=== PATIENT | female | born 1975 | race Caucasian/White ===

== ENCOUNTER 2017-12-01 06:58 | Day surgery (SDC) | payer OTHER ==
[~2017-12-01 06:58] MED LIST: Bisacodyl 5 MG Tab PO PRN; Magnesium Hydroxide 400 MG/5 ML Susp 30 ML Cup PO PRN; Naloxone 0.4 MG/ML SDV IVPUSH PRN; Ondansetron 4 MG/2 ML SDV IVPUSH PRN; Sennosides 8.6 MG Tab PO PRN; diphenhydrAMINE 50 MG/ML SDV IVPUSH PRN
[2017-12-01] MEDS ORDERED: Sodium Chloride 0.9% 10 ML Syringe FLUSH PRN (07:00)
[2017-12-01] MEDS ORDERED: Lactated Ringers 1,000 ML IV SCH (07:00)
[2017-12-01] MEDS ORDERED: Lidocaine 1%/Sod Bicarbonate in NS 8.4% 1 ML Syringe IDERM PRN (07:00)
[2017-12-01] MEDS ORDERED: Morphine PF 1 MG/ML Amp ONE (07:38)
[2017-12-01] MEDS ORDERED: Lactated Ringers 1,000 ML ONE ×2 (08:08→15:02)
[2017-12-01] MEDS ORDERED: Propofol 200 MG/20 ML SDV ONE ×3 (08:08→16:04)
[2017-12-01] MEDS ORDERED: ceFAZolin 1 GM Vial ONE (08:08)
[2017-12-01] MEDS ORDERED: Ketorolac 30 MG/ML SDV ONE (08:08)
[2017-12-01] MEDS ORDERED: Midazolam 1 MG/ML 2 ML SDV ONE (08:09)
[2017-12-01] MEDS ORDERED: fentaNYL 100 MCG/2 ML SDV ONE (08:09)
--- NOTE | 2017-12-01 13:15 | PCM.PREANE ---
Preanesthetic Assessment - Anesthesia/Transfusion/Family Hx Anesthesia History: Prior Anesthesia Reaction (nausea) Type of Anesthesia Reaction: Excessive Nausea/Vomiting Other Type of Anesthesia Reaction Comment: nausea/emesis Family History of Anesthesia Reaction: No Transfusion History: No Prior Transfusion(s) Intubation History: Unknown - Review of Systems General: No Symptoms Pulmonary: No Symptoms (History of asthma/Current every day smoker:1/4 pack/day times 2 years) Cardiovascular: No Symptoms, Palpitations (with anxiety attacks) Gastrointestinal: No Symptoms Neurological: No Symptoms (history of motion sickness) Other: Reports: Easy Bruising, Depression, Anxiety - Physical Assessment NPO Status Date: 11/30/17 NPO Status Time: 23:00 Pulse: 64 O2 Sat by Pulse Oximetry: 96 Respiratory Rate: 16 Blood Pressure: 127/80 Temperature: 36.7 C Height: 1.7 m Weight: 93 kg ASA Class: 2 Mental Status: Alert & Oriented x3 Airway Class: Mallampati = 2 Dentition: Reports: Normal Dentition, Caries Thyro-Mental Finger Breadths: 3 Mouth Opening Finger Breadths: 3 ROM/Head Extension: Full Lungs: Clear to Auscultation, Normal Respiratory Effort Cardiovascular: Regular Rate, Regular Rhythm, No Murmurs - Lab Values: MRSA negative hgb= 15.7 hct= 44.8 platelets= 227,000 All labs reviewed and noted and within acceptable ranges to proceed with scheduled procedure. - Allergies Allergies/Adverse Reactions: Allergies Allergy/AdvReac Type Severity Reaction Status Date / Time tree nut Allergy Severe Anaphylactic Verified 11/28/17 13:23 Shock levofloxacin [From Levaquin] Allergy Rash Verified 11/28/17 13:23 metronidazole [From Flagyl] Allergy Rash Verified 11/28/17 13:23 Penicillins Allergy Hives Verified 11/28/17 13:23 meperidine HCl [From Demerol] AdvReac Nausea Verified 11/28/17 13:23 - Anesthesia Plan Pre-Op Medication Ordered: None - Acknowledgements Anesthesia Type Planned: Spinal (Right femoral nerve block within adductor canal under US guidance for post operative pain control requested by Dr. 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 (See Below) Other OB/BYN History: breast reduction Musculoskeletal History: Reports: None Neurological History: Reports: None Psychiatric History: Reports: Depression Other Psychiatric History: Effexor 37.5 mg Endocrine/Metabolic History: Reports: None Hematologic History: Reports: Iron Deficiency Other Hematologic History: iron deficiency after Immunologic History: Reports: None Oncologic (Cancer) History: Reports: None Dermatologic History: Reports: Other (See Below) Other Dermatologic History: reports that she had a ingrown hair that got infected and she had to have surgery to remove and clean it out. She states that she was in the hospital for 6 days as she had a staph and strep infection - Infectious Disease History Infectious Disease History: Reports: Chicken Pox - Past Surgical History Head Surgeries/Procedures: Reports: None HEENT Surgical History: Reports: Adenoidectomy, Tonsillectomy Cardiovascular Surgical History: Reports: None Respiratory Surgical History: Reports: None GI Surgical History: Reports: Appendectomy, Cholecystectomy Female Surgical History: Reports: Breast Reduction, Section, D&C, Hysterectomy Male Surgical History: Reports: None Endocrine Surgical History: Reports: None Neurological Surgical History: Reports: None Musculoskeletal Surgical History: Reports: None - SUBSTANCE USE Smoking Status *Q: Current Every Day Smoker Tobacco Use Within Last Twelve Months: Cigarettes Second Hand Smoke Exposure: No Days Per Week of Alcohol Use: 0 Number of Drinks Per Day: 0 Total Drinks Per Week: 0 Recreational Drug Use History: No - HOME MEDS Home Medications: Home Meds Zolpidem [Ambien] 10 mg PO BEDTIME 09/03/14 [History] Venlafaxine [Venlafaxine ER] 75 mg PO DAILY 11/13/15 [History] Albuterol [Proventil] 1 puff INH Q4H PRN 11/26/17 [History] HYDROcodone/Ibuprofen [Vicoprofen] 1 tab PO Q4H PRN 11/26/17 [History] LORazepam [LORazepam] 0.5 mg PO QID PRN 11/26/17 [History] - CURRENT (IN HOUSE) MEDS Current Meds: Current Medications Aspirin (Ecotrin) 325 mg PO BID HERNAN Bisacodyl (Dulcolax) 5 mg PO DAILY PRN PRN Reason: Constipation Morphine Sulfate 8 mg/Epinephrine HCl 0.3 mg/Ketorolac Tromethamine 30 mg/ Sodium Chloride 27.9 ml 0 mg .XX ONETIME ONE Stop: 12/01/17 14:01 Cyclobenzaprine HCl (Flexeril) 10 mg PO TID PRN PRN Reason: Spasms Diphenhydramine HCl (Benadryl) 25 mg IVPUSH Q4H PRN PRN Reason: Nausea Docusate Sodium (Colace) 100 mg PO BID HERNAN Famotidine (Pepcid) 20 mg PO Q12H HERNAN Lactated Ringer's (Ringers, Lactated) 1,000 mls @ 125 mls/hr IV ASDIRECTED HERNAN Stop: 12/01/17 23:00 Clindamycin Phosphate 600 mg/ (Sodium Chloride) 104 mls @ 100 mls/hr IV Q6H HERNAN Stop: 12/02/17 07:01 Clindamycin Phosphate 900 mg/ (Sodium Chloride) 106 mls @ 100 mls/hr IV ONETIME ONE Stop: 12/01/17 15:03 Ketorolac Tromethamine (Toradol) 15 mg IVPUSH Q6H PRN PRN Reason: Pain Lidocaine/Sodium Bicarbonate (Buffered Lidocaine 1% In Ns 8.4%) 0.25 ml IDERM ONETIME PRN PRN Reason: Prior to IV Start Stop: 12/01/17 18:00 Magnesium Hydroxide (Milk Of Magnesia) 30 ml PO BID PRN PRN Reason: Constipation Naloxone HCl (Narcan) 0.1 mg IVPUSH Q5M PRN PRN Reason: Oversedation Ondansetron HCl (Zofran) 4 mg IVPUSH Q6H PRN PRN Reason: Nausea/Vomiting Oxycodone/Acetaminophen (Percocet 325-5 Mg) 1 - 2 tab PO Q4H PRN PRN Reason: Pain Senna (Senna) 8.6 mg PO BID PRN PRN Reason: Constipation Sodium Chloride (Saline Flush) 10 ml FLUSH ASDIRECTED PRN PRN Reason: Keep Vein Open Stop: 12/01/17 18:00 Discontinued Medications Cefazolin Sodium (Ancef) Confirm Administered Dose 2 gm .ROUTE .STK-MED ONE Stop: 12/01/17 08:09 Fentanyl (Sublimaze) Confirm Administered Dose 100 mcg .ROUTE .STK-MED ONE Stop: 12/01/17 08:10 Lidocaine HCl (Xylocaine-Mpf 1%) Confirm Administered Dose 10 mls @ as directed .ROUTE .STK-MED ONE Stop: 12/01/17 08:09 Lactated Ringer's (Ringers, Lactated) Confirm Administered Dose 1,000 mls @ as directed .ROUTE .STK-MED ONE Stop: 12/01/17 08:09 Ketorolac Tromethamine (Toradol) Confirm Administered Dose 30 mg .ROUTE .STK- MED ONE Stop: 12/01/17 08:09 Midazolam HCl (Versed 1 Mg/Ml) Confirm Administered Dose 2 mg .ROUTE .STK-MED ONE Stop: 12/01/17 08:10 Morphine Sulfate (Duramorph Pf) Confirm Administered Dose 1 mg .ROUTE .STK-MED ONE Stop: 12/01/17 07:39 Propofol (Diprivan 20 Ml) Confirm Administered Dose 400 mg .ROUTE .STK-MED ONE Stop: 12/01/17 08:09
[2017-12-01] MEDS ORDERED: Scopolamine 1 MG Transdermal Patch TRDERM ONE (13:16)
[2017-12-01] MEDS ORDERED: Bupivacaine 0.25% 30 ML SDV ONE (13:48)
[2017-12-01] MEDS ORDERED: Clindamycin Phosphate 900 MG/6 ML AdvVial ONE (13:48)
[2017-12-01] MEDS ORDERED: Clindamycin Phosphate 900 MG in Sodium Chloride 0.9% 100 ML IV ONE (14:00)
--- NOTE | 2017-12-01 15:15 | PCM.CONS ---
H&P History of Present Illness - General Date of Service: 12/01/17 Admit Problem/Dx: Admission Diagnosis/Problem Admission Diagnosis/Problem Osteoarthritis of knee Source of Information: Patient, Old Records, Provider, RN Notes Reviewed History Limitations: Reports: Physical Impairment - History of Present Illness Initial Comments - Free Text/Narative: This is a 42-year-old, white female, with past medical history of Asthma, Insomnia and Obesity who underwent right TKA vs PFA post operative day zero. Patient is doing relatively well. Currently, her pain is controlled. She denies any acute issues. Medicine was consulted for postoperative care. - Related Data Allergies/Adverse Reactions: Allergies Allergy/AdvReac Type Severity Reaction Status Date / Time tree nut Allergy Severe Anaphylactic Verified 11/28/17 13:23 Shock levofloxacin [From Levaquin] Allergy Rash Verified 11/28/17 13:23 metronidazole [From Flagyl] Allergy Rash Verified 11/28/17 13:23 Penicillins Allergy Hives Verified 11/28/17 13:23 meperidine HCl [From Demerol] AdvReac Nausea Verified 11/28/17 13:23 Home Medications: Home Meds Zolpidem [Ambien] 10 mg PO BEDTIME 09/03/14 [History] Venlafaxine [Venlafaxine ER] 75 mg PO DAILY 11/13/15 [History] Albuterol [Proventil] 1 puff INH Q4H PRN 11/26/17 [History] HYDROcodone/Ibuprofen [Vicoprofen] 1 tab PO Q4H PRN 11/26/17 [History] LORazepam [LORazepam] 0.5 mg PO QID PRN 11/26/17 [History] Past Medical History Cardiovascular History: Reports: None Respiratory History: Reports: Asthma Gastrointestinal History: Reports: None Genitourinary History: Reports: None [employer]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: , 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 (See Below) Other OB/BYN History: breast reduction Musculoskeletal History: Reports: None Neurological History: Reports: None Psychiatric History: Reports: Depression Other Psychiatric History: Effexor 37.5 mg Endocrine/Metabolic History: Reports: None Hematologic History: Reports: Iron Deficiency Other Hematologic History: iron deficiency after Immunologic History: Reports: None Oncologic (Cancer) History: Reports: None Dermatologic History: Reports: Other (See Below) Other Dermatologic History: reports that she had a ingrown hair that got infected and she had to have surgery to remove and clean it out. She states that she was in the hospital for 6 days as she had a staph and strep infection - Infectious Disease History Infectious Disease History: Reports: Chicken Pox - Past Surgical History Head Surgeries/Procedures: Reports: None HEENT Surgical History: Reports: Adenoidectomy, Tonsillectomy Cardiovascular Surgical History: Reports: None Respiratory Surgical History: Reports: None GI Surgical History: Reports: Appendectomy, Cholecystectomy Female Surgical History: Reports: Breast Reduction, Section, D&C, Hysterectomy Male Surgical History: Reports: None Endocrine Surgical History: Reports: None Neurological Surgical History: Reports: None Musculoskeletal Surgical History: Reports: None Social & Family History - Tobacco Use Smoking Status *Q: Current Every Day Smoker Years of Tobacco use: 3 Packs/Tins Daily: 0.5 Second Hand Smoke Exposure: No - Caffeine Use Caffeine Use: Reports: Coffee - Alcohol Use Days Per Week of Alcohol Use: 0 Number of Drinks Per Day: 0 Total Drinks Per Week: 0 - Recreational Drug Use Recreational Drug Use: No Drug Use in Last 12 Months: No H&P Review of Systems - Review of Systems: Review Of Systems: See Below General: Denies: Fever, Chills, Malaise, Weakness, Fatigue HEENT: Reports: No Symptoms Pulmonary: Denies: Shortness of Breath Cardiovascular: Denies: Chest Pain, Palpitations, Dyspnea on Exertion, Edema Gastrointestinal: Denies: Abdominal Pain, Nausea, Vomiting Genitourinary: Reports: No Symptoms Musculoskeletal: Reports: No Symptoms Skin: Reports: Pruritis. Denies: Cyanosis, Jaundice, Mottled, Diaphoresis, Erythema Psychiatric: Denies: Confusion, Depression, Mood Lability, Anxiety, Hallucinations, Suicidal Ideation, Homicidal Ideation Neurological: Reports: Difficulty Walking, Gait Disturbance. Denies: Confusion , Weakness Hematologic/Lymphatic: Reports: No Symptoms Immunologic: Reports: No Symptoms Exam - Exam Exam: See Below - Vital Signs Vital Signs: Last Vital Signs Temp 36.7 C 12/01/17 13:39 Pulse 64 12/01/17 13:39 Resp 16 12/01/17 13:39 BP 127/80 12/01/17 13:39 Pulse Ox 96 12/01/17 13:39 Weight: 93 kg - Exam General: Alert, Oriented, Cooperative HEENT: Conjunctiva Clear, EACs Clear, EOMI, Hearing Intact, Mucosa Moist & [place] , Nares Patent, Normal Nasal Septum, Posterior Pharynx Clear, Pupils Equal, Pupils Reactive Neck: Supple, Trachea Midline Lungs: Clear to Auscultation, Normal Respiratory Effort Cardiovascular: Regular Rate, Regular Rhythm GI/Abdominal Exam: Normal Bowel Sounds, Soft, Non-Tender, No Organomegaly, No Abnormal Bruit, No Mass (Female) Exam: Other (indwelling curran catheter) Rectal (Female) Exam: Deferred Back Exam: Normal Inspection, Decreased Range of Motion Extremities: Normal Inspection, Normal Range of Motion, Non-Tender, No Pedal Edema, Normal Capillary Refill Peripheral Pulses: 3+: Posterior Tibial (L), Dorsalis Pedis (L) Skin: Warm, Dry, Intact Neuro Extensive - Mental Status: Oriented x3, Normal Cognition, Memory Intact Neuro Extensive - Motor, Sensory, Reflexes: CN II-XII Intact, Abnormal Gait Psychiatric: Alert, Normal Affect, Normal Mood Consult PN Assessment/Plan POD#: 0 Procedures: Procedures AIRWAY INHALATION TREATMENT (04/07/15) BLOOD TYPING SEROLOGIC ABO (04/07/15) BLOOD TYPING SEROLOGIC RH(D) (04/07/15) COMPLETE CBC AUTOMATED (04/07/15) COMPLETE CBC W/AUTO DIFF WBC (04/07/15) CT HEAD/BRAIN W/O DYE (11/13/15) CULTURE AEROBIC IDENTIFY (10/05/14) EMERGENCY DEPT VISIT (11/13/15) EMERGENCY DEPT VISIT (04/21/15) EMERGENCY DEPT VISIT (10/05/14) EVALUATE PT USE OF INHALER (04/07/15) LAPARO-VAG HYST INCL T/O (04/07/15) MEASURE BLOOD OXYGEN LEVEL (04/07/15) METABOLIC PANEL TOTAL CA (04/07/15) MICROBE SUSCEPTIBLE NOHEMY (10/05/14) MRI JNT OF LWR EXTRE W/O DYE (04/18/17) OFFICE/OUTPATIENT VISIT EST (09/08/14) RBC ANTIBODY SCREEN (04/07/15) ROUTINE VENIPUNCTURE (04/07/15) THER/PROPH/DIAG INJ IV PUSH (11/13/15) THER/PROPH/DIAG IV INF INIT (04/07/15) TISSUE EXAM BY PATHOLOGIST (04/07/15) TX/PRO/DX INJ NEW DRUG ADDON (11/13/15) TX/PROPH/DG ADDL SEQ IV INF (04/07/15) URINALYSIS AUTO W/SCOPE (10/05/14) URINE BACTERIA CULTURE (10/05/14) URINE TEST (04/07/15) Problem List Initiated/Reviewed/Updated: Yes Plan: Assessment: Acute: Post-Operative Care State - Stable - Continue to monitor for hemodynamic instability S/p RKA vs PFA - Stable - DVT and Pain Management as per primary team Hx/o Chronic Knee Pain - Pain Management as per primary team Post Operative Itching/Pruritis - PRN Benadryl as orders by primary team Chronic: Asthma Active Smoker - Offered Nicotine patch - Patient refused Obesity with BMI 32.1 Plan: She is clinically stable Routine AM labs Continue home meds PT/OT consult IS q2 awake Thank you for the opportunity to participate in the management of this patient Requesting Provider: Dr. Gallegos Date Consult Requested: 12/01/17 Reason for Consult: Post-Operative Care Patient History Reviewed: Yes Admission H&P Reviewed: Yes Consult Result/Summary:: Medically Stable Notified Requestor: Yes Time Spent (in minutes): 45
[2017-12-01] MEDS ORDERED: Ondansetron 4 MG/2 ML SDV IVPUSH PRN (15:28)
[2017-12-01] MEDS ORDERED: Midazolam 1 MG/ML 2 ML SDV IVPUSH PRN (15:28)
[2017-12-01] MEDS ORDERED: Albuterol 0.083% 2.5 MG/3 ML Neb Soln NEB PRN (15:28)
[2017-12-01] MEDS ORDERED: fentaNYL 100 MCG/2 ML SDV IVPUSH PRN (15:28)
[2017-12-01] MEDS ORDERED: ePHEDrine 50 MG/ML SDV IVPUSH PRN (15:28)
[2017-12-01] MEDS ORDERED: HYDROmorphone 0.5 MG/0.5 ML Syringe IVPUSH PRN (15:28)
[2017-12-01] MEDS ORDERED: Phenylephrine 1 MG in Sodium Chloride 0.9% 10 ML IV SCH (15:30)
[2017-12-01] MEDS ORDERED: Dexamethasone 4 MG/ML 5 ML MDV ONE (15:40)
[2017-12-01] MEDS ORDERED: Iodine/Sodium Iodide 2% Tincture 30 ML Bottle ONE (15:53)
[2017-12-01] MEDS: Vancomycin 1 GM SDV ONE ×2 (16:22→16:28)
[2017-12-01] MEDS: Morphine 8 MG, EPINEPHrine 0.3 MG, Ketorolac 30 MG, Sodium Chloride 0.9% 27.9 ML ONE ×4 (16:24)
[2017-12-01] MEDS ORDERED: Phenylephrine/Normal Saline 100 MCG/ML 10 ML Syringe ONE (16:28)
[2017-12-01] MEDS ORDERED: EPINEPHrine 1 MG/ML SDV ONE (16:57)
[2017-12-01] MEDS ORDERED: Clindamycin Phosphate 600 MG in Sodium Chloride 0.9% 100 ML IV SCH ×2 (16:58→19:30)
[2017-12-01] MEDS ORDERED: Ropivacaine 0.5% 5 MG/ML 30 ML SDV ONE (16:58)
[2017-12-01] MEDS ORDERED: LORazepam 0.5 MG Tab PO PRN (17:01)
[2017-12-01] MEDS ORDERED: Albuterol 6.7 GM Inhaler INH PRN (17:07)
--- NOTE | 2017-12-01 17:10 | PCM.POSTAN ---
POST ANESTHESIA ASSESSMENT - MENTAL STATUS Mental Status: Alert - VITAL SIGNS Pulse Rate: 72 SaO2: 93 (2LPM nasal cannula) Resp Rate: 16 Blood Pressure: 109/75 Temperature: 36.5 C - RESPIRATORY Respiratory Status: Respiratory Rate WNL, Airway Patent, O2 Saturation Stable, Supplemental Oxygen - CARDIOVASCULAR CV Status: Pulse Rate WNL, Blood Pressure Stable - GASTROINTESTINAL GI Status: No Symptoms - POST OP HYDRATION Hydration Status: Adequate & Stable
--- NOTE | 2017-12-01 17:42 | PCM.SN ---
- Free Text/Narrative Note: Right selective femoral nerve block at the adductor canal for post-operative pain control under Ultra Sound Guidance requested by Dr. Gallegos. Time Out: 1714 Start: 1714 End: 1724 Chart reviewed. Consent signed. Questions answered. Appropriate monitors applied. Time out performed. Right mid-shaft femur visulaized with ultrasound, scanning medially of femur, femoral artery, femoral vein, and femoral nerve noted in the adductor canal. The femoral nerve located laterally to the artery. The skin was prepped lateral to the ultrasound probe with chlorahexadine. The 21ga 4 insulated block needle was inserted under direct ultrasound guidance into the adductor canal. 25mL of 0.5% ropivacaine with 1: 200,000 epinephrine was injected cirmcumferentially around the nerve with intermittent negative aspiration. Patient tolerated the procedure well. See pictures on progress note and vital signs on nurses notes. Block completed in PACU. Thank you, Montserrat Archer CRNA
--- NOTE | 2017-12-01 17:48 | CR ---
Right knee: 2 views of the right knee were obtained. Comparison: Prior right knee MRI of 04/18/17, no previous plain film study. Findings: Right knee prosthesis is seen. Components are aligned. Underlying bony structures are intact. Soft tissue air is noted from the surgical procedure. Impression: 1. Satisfactory postoperative radiographic appearance of recently placed right knee prosthesis. Diagnostic code #2
[2017-12-01] MEDS: diphenhydrAMINE 50 MG/ML SDV IVPUSH PRN (19:16)
[2017-12-01] MEDS: Acetaminophen/oxyCODONE 325-5 MG Tab PO PRN (19:19)
[2017-12-01] MEDS: Famotidine 20 MG Tab PO SCH (20:51)
[2017-12-01] MEDS: Cyclobenzaprine 10 MG Tab PO PRN (20:51)
[2017-12-01] MEDS: Docusate Sodium 100 MG Cap PO SCH (20:51)
[2017-12-01] MEDS: Clindamycin Phosphate 900 MG in Sodium Chloride 0.9% 100 ML IV SCH (20:53)
[2017-12-01] MEDS ORDERED: Pneumococcal Polyvalent-23 Vaccine 0.5 ML SDV SUBCUT ONE (23:03)
[2017-12-02] MEDS: Acetaminophen/oxyCODONE 325-5 MG Tab PO PRN ×4 (00:45→15:08)
[2017-12-02] MEDS: Ketorolac 15 MG/ML SDV IVPUSH PRN ×2 (00:47→12:52)
[2017-12-02] MEDS: Nicotine 14 MG/24 Hr Patch TRDERM SCH ×2 (00:48→08:58)
[2017-12-02] MEDS: Clindamycin Phosphate 900 MG in Sodium Chloride 0.9% 100 ML IV SCH ×3 (02:14→14:23)
[2017-12-02] MEDS: diphenhydrAMINE 50 MG/ML SDV IVPUSH PRN ×2 (02:14→10:11)
[2017-12-02] MEDS ORDERED: Diphtheria,Pertussis(Acell),Tetanus Vaccine 0.5 ML SDV IM ONE (03:08)
[2017-12-02] MEDS: Cyclobenzaprine 10 MG Tab PO PRN ×2 (05:45→12:48)
[2017-12-02] MEDS: Morphine 8 MG, EPINEPHrine 0.3 MG, Ketorolac 30 MG, Sodium Chloride 0.9% 27.9 ML ONE ×4 (06:08)
[2017-12-02] MEDS ORDERED: Pneumococcal Polyvalent-23 Vaccine 0.5 ML SDV IM ONE (06:46)
--- NOTE | 2017-12-02 07:16 | PCM.CONSN ---
- General Info Date of Service: 12/02/17 Admission Dx/Problem (Free Text): Admission Diagnosis/Problem Admission Diagnosis/Problem Osteoarthritis of knee POD #[address] Gallegos Pain under control. Ambulating, Voiding. No n/v. VSS on RA Plans for DC home today. Functional Status: Reports: Pain Controlled, Tolerating Diet, Ambulating, Urinating, Incentive Spirometry - Review of Systems General: Reports: No Symptoms HEENT: Reports: No Symptoms Pulmonary: Reports: No Symptoms Cardiovascular: Reports: No Symptoms Gastrointestinal: Reports: No Symptoms Genitourinary: Reports: No Symptoms Musculoskeletal: Reports: Leg Pain Skin: Reports: No Symptoms Neurological: Reports: No Symptoms Psychiatric: Reports: No Symptoms - Patient Data Vitals - Most Recent: Last Vital Signs Temp 99.5 F 12/02/17 01:02 Pulse 76 12/02/17 03:00 Resp 18 12/02/17 06:00 BP 104/61 12/02/17 01:02 Pulse Ox 98 12/02/17 06:00 Weight - Most Recent: 205 lb I&O - Last 24 Hours: Intake & Output 12/01/17 12/02/17 12/02/17 22:59 06:59 14:59 Intake Total 620 550 Output Total 2150 1050 Balance -1530 -500 Lab Results Last 24 Hours: Laboratory Results - last 24 hr 12/02/17 Range/Units 05:40 WBC 18.88 H (3.98-10.04) K/mm3 RBC 4.06 (3.98-5.22) M/mm3 Hgb 12.6 (11.2-15.7) gm/L Hct 36.2 (34.1-44.9) % MCV 89.2 (79.4-94.8) fl MCH 31.0 (25.6-32.2) pg MCHC 34.8 (32.2-35.5) g/dl RDW Std Deviation 41.1 (36.4-46.3) fL Plt Count 205 (182-369) K/mm3 MPV 11.8 (9.4-12.3) fl Med Orders - Current: Current Medications Albuterol (Proventil Neb Soln) 2.5 mg NEB ONETIME PRN PRN Reason: wheezing/coughing Albuterol (Proventil Hfa) 0 gm INH Q4H PRN PRN Reason: Wheezing Aspirin (Ecotrin) 325 mg PO BID [facility] Bisacodyl (Dulcolax) 5 mg PO DAILY PRN PRN Reason: Constipation Cyclobenzaprine HCl (Flexeril) 10 mg PO TID PRN PRN Reason: Spasms Last Admin: 12/02/17 05:45 Dose: 10 mg Diphenhydramine HCl (Benadryl) 25 mg IVPUSH Q6H PRN PRN Reason: pruritis Last Admin: 12/02/17 02:14 Dose: 25 mg Docusate Sodium (Colace) 100 mg PO BID [facility] Last Admin: 12/01/17 20:51 Dose: 100 mg Ephedrine Sulfate (Ephedrine Sulfate) 5 mg IVPUSH ASDIRECTED PRN PRN Reason: Hypotension Famotidine (Pepcid) 20 mg PO Q12H [facility] Last Admin: 12/01/17 20:51 Dose: 20 mg Clindamycin Phosphate 900 mg/ (Sodium Chloride) 106 mls @ 100 mls/hr IV Q6H [facility] Stop: 12/02/17 20:01 Last Admin: 12/02/17 02:14 Dose: 100 mls/hr Ketorolac Tromethamine (Toradol) 15 mg IVPUSH Q6H PRN PRN Reason: Pain Last Admin: 12/02/17 00:47 Dose: 15 mg Lorazepam (Ativan) 0.5 mg PO QID PRN PRN Reason: Anxiety Magnesium Hydroxide (Milk Of Magnesia) 30 ml PO BID PRN PRN Reason: Constipation Miscellaneous Information (Remove Patch) 0 ea TRDERM DAILY [facility] Naloxone HCl (Narcan) 0.1 mg IVPUSH Q5M PRN PRN Reason: Oversedation Nicotine (Habitrol) 14 mg TRDERM DAILY [facility] Last Admin: 12/02/17 00:48 Dose: 14 mg Ondansetron HCl (Zofran) 4 mg IVPUSH Q6H PRN PRN Reason: Nausea/Vomiting Last Admin: 12/01/17 17:41 Dose: 4 mg Oxycodone/Acetaminophen (Percocet 325-5 Mg) 1 - 2 tab PO Q4H PRN PRN Reason: Pain Last Admin: 12/02/17 06:19 Dose: 2 tab Senna (Senna) 8.6 mg PO BID PRN PRN Reason: Constipation Venlafaxine HCl (Effexor Xr) 75 mg PO DAILY [facility] Discontinued Medications Bupivacaine HCl (Marcaine 0.25%) Confirm Administered Dose 30 ml .ROUTE .STK- MED ONE Stop: 12/01/17 13:49 Last Admin: 12/01/17 16:25 Dose: 30 ml Cefazolin Sodium (Ancef) Confirm Administered Dose 2 gm .ROUTE .STK-[facility] ONE Stop: 12/01/17 08:09 Clindamycin Phosphate (Cleocin) Confirm Administered Dose 900 mg .ROUTE .ST- MED ONE Stop: 12/01/17 13:49 Last Admin: 12/01/17 16:20 Dose: 900 mg Morphine Sulfate 8 mg/Epinephrine HCl 0.3 mg/Ketorolac Tromethamine 30 mg/ Sodium Chloride 27.9 ml 0 mg .XX ONETIME ONE Stop: 12/01/17 14:01 Last Admin: 12/02/17 06:08 Dose: Not Given Dexamethasone (Dexamethasone) Confirm Administered Dose 20 mg .ROUTE .[facility] ONE Stop: 12/01/17 15:41 Diphenhydramine HCl (Benadryl) 25 mg IVPUSH Q4H PRN PRN Reason: Nausea Diphtheria/Tetanus/Acell Pertussis (Adacel) 0.5 ml IM .ONCE ONE Stop: 12/02/17 03:09 Epinephrine HCl (Adrenalin) Confirm Administered Dose 1 mg .ROUTE .STK-MED ONE Stop: 12/01/17 16:58 Fentanyl (Sublimaze) Confirm Administered Dose 100 mcg .ROUTE .[facility] ONE Stop: 12/01/17 08:10 Fentanyl (Sublimaze) 50 mcg IVPUSH Q5M PRN PRN Reason: Pain Hydromorphone HCl (Dilaudid) 0.5 mg IVPUSH Q15M PRN PRN Reason: severe pain Lactated Ringer's (Ringers, Lactated) 1,000 mls @ 125 mls/hr IV ASDIRECTED [facility] Stop: 12/01/17 23:00 Last Admin: 12/01/17 13:20 Dose: 125 mls/hr Clindamycin Phosphate 600 mg/ (Sodium Chloride) 104 mls @ 100 mls/hr IV Q6H [facility] Stop: 12/02/17 19:31 Lidocaine HCl (Xylocaine-Mpf 1%) Confirm Administered Dose 10 mls @ as directed .ROUTE .STK-MED ONE Stop: 12/01/17 08:09 Lactated Ringer's (Ringers, Lactated) Confirm Administered Dose 1,000 mls @ as directed .ROUTE .ST-MED ONE Stop: 12/01/17 08:09 Clindamycin Phosphate 900 mg/ (Sodium Chloride) 106 mls @ 100 mls/hr IV ONETIME ONE Stop: 12/01/17 15:03 Last Admin: 12/01/17 13:39 Dose: 100 mls/hr Lactated Ringer's (Ringers, Lactated) Confirm Administered Dose 1,000 mls @ as directed .ROUTE .ST-MED ONE Stop: 12/01/17 15:03 Phenylephrine HCl 1 mg/ Sodium (Chloride) 10.1 mls @ 1 mls/sec IV TITRATE [facility] PRN Reason: Protocol Clindamycin Phosphate 600 mg/ (Sodium Chloride) 104 mls @ 100 mls/hr IV Q6H [facility] Stop: 12/01/17 16:58 Iodine (Iodine 2% Mild Tincture) Confirm Administered Dose 30 ml .ROUTE .STK- MED ONE Stop: 12/01/17 15:54 Last Admin: 12/01/17 16:16 Dose: 18 ml Ketorolac Tromethamine (Toradol) Confirm Administered Dose 30 mg .ROUTE .ST- MED ONE Stop: 12/01/17 08:09 Lidocaine/Sodium Bicarbonate (Buffered Lidocaine 1% In Ns 8.4%) 0.25 ml IDERM ONETIME PRN PRN Reason: Prior to IV Start Stop: 12/01/17 18:00 Last Admin: 12/01/17 13:19 Dose: 0.25 ml Midazolam HCl (Versed 1 Mg/Ml) Confirm Administered Dose 2 mg .ROUTE .STK-MED ONE Stop: 12/01/17 08:10 Midazolam HCl (Versed 1 Mg/Ml) 2 mg IVPUSH ONETIME PRN PRN Reason: Sedation Morphine Sulfate (Duramorph Pf) Confirm Administered Dose 1 mg .ROUTE .STK-MED ONE Stop: 12/01/17 07:39 Ondansetron HCl (Zofran) 4 mg IVPUSH ONETIME PRN PRN Reason: Nausea/Vomiting Phenylephrine HCl (Phenylephrine In Ns 100 Mcg/Ml) Confirm Administered Dose 1 mg .ROUTE .STK-MED ONE Stop: 12/01/17 16:29 Pneumococcal Polyvalent Vaccine (Pneumovax 23) 0.5 ml SUBCUT .ONCE ONE Stop: 12/01/17 23:04 Pneumococcal Polyvalent Vaccine (Pneumovax 23) 0.5 ml IM .ONCE ONE Stop: 12/02/17 06:47 Propofol (Diprivan 20 Ml) Confirm Administered Dose 400 mg .ROUTE .STK-MED ONE Stop: 12/01/17 08:09 Propofol (Diprivan 20 Ml) Confirm Administered Dose 200 mg .ROUTE .STK-MED ONE Stop: 12/01/17 16:05 Propofol (Diprivan 20 Ml) Confirm Administered Dose 200 mg .ROUTE .STK-MED ONE Stop: 12/01/17 16:05 Ropivacaine (Naropin 0.5%) Confirm Administered Dose 30 ml .ROUTE .STK-MED ONE Stop: 12/01/17 16:59 Scopolamine (Scopolamine) 1 each TRDERM ONETIME ONE Stop: 12/01/17 13:17 Last Admin: 12/01/17 13:35 Dose: 1 each Sodium Chloride (Saline Flush) 10 ml FLUSH ASDIRECTED PRN PRN Reason: Keep Vein Open Stop: 12/01/17 18:00 Tranexamic Acid (Cyklokapron) Confirm Administered Dose 1,000 mg .ROUTE .STK- MED ONE Stop: 12/01/17 13:49 Last Admin: 12/01/17 16:32 Dose: 1,000 mg Vancomycin HCl (Vancomycin) Confirm Administered Dose 1 gm .ROUTE .STK-MED ONE Stop: 12/01/17 13:49 Last Admin: 12/01/17 16:28 Dose: 1 gm - Exam Quality Assessment: DVT Prophylaxis General: Alert, Oriented, Cooperative, No Acute Distress HEENT: Pupils Equal, EOMI, Mucous Membr. Moist/Biron Neck: Supple Lungs: Clear to Auscultation, Normal Respiratory Effort Cardiovascular: Regular Rate, Regular Rhythm GI/Abdominal Exam: Normal Bowel Sounds, Soft, Non-Tender (Female) Exam: Deferred Extremities: Other (Teds, SCD's bilat and ice to rt knee) Peripheral Pulses: 2+: Dorsalis Pedis (L), Dorsalis Pedis (R) Neurological: No New Focal Deficit Psy/Mental Status: Alert, Normal Affect, Normal Mood Consult PN Assessment/Plan POD#: 1 Procedures: Procedures AIRWAY INHALATION TREATMENT (04/07/15) BLOOD TYPING SEROLOGIC ABO (04/07/15) BLOOD TYPING SEROLOGIC RH(D) (04/07/15) COMPLETE CBC AUTOMATED (04/07/15) COMPLETE CBC W/AUTO DIFF WBC (04/07/15) CT HEAD/BRAIN W/O DYE (11/13/15) CULTURE AEROBIC IDENTIFY (10/05/14) EMERGENCY DEPT VISIT (11/13/15) EMERGENCY DEPT VISIT (04/21/15) EMERGENCY DEPT VISIT (10/05/14) EVALUATE PT USE OF INHALER (04/07/15) LAPARO-VAG HYST INCL T/O (04/07/15) MEASURE BLOOD OXYGEN LEVEL (04/07/15) METABOLIC PANEL TOTAL CA (04/07/15) MICROBE SUSCEPTIBLE NOHEMY (10/05/14) MRI JNT OF LWR EXTRE W/O DYE (04/18/17) OFFICE/OUTPATIENT VISIT EST (09/08/14) RBC ANTIBODY SCREEN (04/07/15) ROUTINE VENIPUNCTURE (04/07/15) THER/PROPH/DIAG INJ IV PUSH (11/13/15) THER/PROPH/DIAG IV INF INIT (04/07/15) TISSUE EXAM BY PATHOLOGIST (04/07/15) TX/PRO/DX INJ NEW DRUG ADDON (11/13/15) TX/PROPH/DG ADDL SEQ IV INF (04/07/15) URINALYSIS AUTO W/SCOPE (10/05/14) URINE BACTERIA CULTURE (10/05/14) URINE TEST (04/07/15) (1) S/P total knee arthroplasty SNOMED Code(s): 7015495268265, 1812990410790 Code(s): Z96.659 - PRESENCE OF UNSPECIFIED ARTIFICIAL KNEE JOINT Priority: High Current Visit: Yes Qualifiers: Laterality: right Qualified Code(s): Z96.651 - Presence of right artificial knee joint (2) Osteoarthritis SNOMED Code(s): 487234286 Code(s): M19.90 - UNSPECIFIED OSTEOARTHRITIS, UNSPECIFIED SITE Priority: High Current Visit: Yes Qualifiers: Osteoarthritis location: knee Osteoarthritis type: primary Laterality: right Qualified Code(s): M17.11 - Unilateral primary osteoarthritis, right knee Problem List Initiated/Reviewed/Updated: Yes Plan: I/P: S/P total knee arthroplasty, POD # 1, Dr. Gallegos - Pain management and DVT prophylax - PT/OT - RT/IS - Hgb this am 12.6 -VSS on RA -Plans DC home today Chronic conditions: Thyroid disease--stable Other: GI Prophylax CM for assist with DC planning--Plans DC home today. OK from Hospitalist standpoint for DC home today. Reviewed recommendations with Ortho team. Patient is full Code status.
--- NOTE | 2017-12-02 08:13 | PCM48HPAN ---
Post Anesthesia Note - EVALUATION WITHIN 48HRS OF ANESTHETIC Vital Signs in Normal Range: Yes Patient Participated in Evaluation: Yes Respiratory Function Stable: Yes Airway Patent: Yes Cardiovascular Function Stable: Yes Hydration Status Stable: Yes Pain Control Satisfactory: Yes Nausea and Vomiting Control Satisfactory: Yes Mental Status Recovered: Yes - COMMENTS/OBSERVATIONS Free Text/Narrative:: Patient doing well resting in chair eating breakfast. Stated she did not rest well last night (1-2 hours of sleep). Patient had significant pruritus that also kept her from resting. Doing well otherwise.
[2017-12-02] MEDS: Famotidine 20 MG Tab PO SCH (08:56)
[2017-12-02] MEDS: Docusate Sodium 100 MG Cap PO SCH (08:56)
[2017-12-02] MEDS ORDERED: Aspirin 325 MG Tab.EC PO SCH (09:00)
[2017-12-02] MEDS ORDERED: Venlafaxine 75 MG Cap.ER**OWN MED PO SCH (09:00)
--- NOTE | 2017-12-02 12:20 | PCM.SURGPN ---
- General Info Date of Service: 12/02/17 POD#: 1 Functional Status: Reports: Pain Controlled, Tolerating Diet, Ambulating, Urinating, Incentive Spirometry - Review of Systems Musculoskeletal: Reports: Other (The pt's pain has been controlled.) - Patient Data Vitals - Most Recent: Last Vital Signs Temp 98.8 F 12/02/17 08:00 Pulse 77 12/02/17 09:00 Resp 16 12/02/17 10:00 BP 118/78 12/02/17 08:00 Pulse Ox 100 12/02/17 10:00 Weight - Most Recent: 205 lb I&O - Last 24 Hours: Intake & Output 12/01/17 12/02/17 12/02/17 22:59 06:59 14:59 Intake Total 620 550 120 Output Total 2150 1050 Balance -1530 -500 120 Lab Results Last 24 Hrs: Laboratory Results - last 24 hr 12/02/17 12/02/17 Range/Units 05:40 05:40 WBC 18.88 H (3.98-10.04) K/mm3 RBC 4.06 (3.98-5.22) M/mm3 Hgb 12.6 (11.2-15.7) gm/L Hct 36.2 (34.1-44.9) % MCV 89.2 (79.4-94.8) fl MCH 31.0 (25.6-32.2) pg MCHC 34.8 (32.2-35.5) g/dl RDW Std Deviation 41.1 (36.4-46.3) fL Plt Count 205 (182-369) K/mm3 MPV 11.8 (9.4-12.3) fl Sodium 138 (136-145) mEq/L Potassium 4.4 (3.5-5.1) mEq/L Chloride 105 (98-107) mEq/L Carbon Dioxide 24 (21-32) mEq/L Anion Gap 13.4 (5-15) BUN 9 (7-18) mg/dL Creatinine 0.8 (0.55-1.02) mg/dL Est Cr Clr Drug Dosing 89.99 mL/min Estimated GFR (MDRD) > 60 (>60) mL/min BUN/Creatinine Ratio 11.3 L (14-18) Glucose 118 H (74-106) mg/dL Calcium 8.4 L (8.5-10.1) mg/dL Total Bilirubin 0.3 (0.2-1.0) mg/dL AST 13 L (15-37) U/L ALT 21 (14-59) U/L Alkaline Phosphatase 57 (46-116) U/L Total Protein 6.5 (6.4-8.2) g/dl Albumin 3.1 L (3.4-5.0) g/dl Globulin 3.4 gm/dL Albumin/Globulin Ratio 0.9 L (1-2) Med Orders - Current: Current Medications Albuterol (Proventil Neb Soln) 2.5 mg NEB ONETIME PRN PRN Reason: wheezing/coughing Albuterol (Proventil Hfa) 0 gm INH Q4H PRN PRN Reason: Wheezing Aspirin (Ecotrin) 325 mg PO BID [facility] Last Admin: 12/02/17 08:54 Dose: 325 mg Bisacodyl (Dulcolax) 5 mg PO DAILY PRN PRN Reason: Constipation Cyclobenzaprine HCl (Flexeril) 10 mg PO TID PRN PRN Reason: Spasms Last Admin: 12/02/17 05:45 Dose: 10 mg Diphenhydramine HCl (Benadryl) 25 mg IVPUSH Q6H PRN PRN Reason: pruritis Last Admin: 12/02/17 10:11 Dose: 25 mg Docusate Sodium (Colace) 100 mg PO BID [facility] Last Admin: 12/02/17 08:56 Dose: 100 mg Ephedrine Sulfate (Ephedrine Sulfate) 5 mg IVPUSH ASDIRECTED PRN PRN Reason: Hypotension Famotidine (Pepcid) 20 mg PO Q12H [facility] Last Admin: 12/02/17 08:56 Dose: 20 mg Clindamycin Phosphate 900 mg/ (Sodium Chloride) 106 mls @ 100 mls/hr IV Q6H [facility] Stop: 12/02/17 20:01 Last Admin: 12/02/17 08:34 Dose: 100 mls/hr Ketorolac Tromethamine (Toradol) 15 mg IVPUSH Q6H PRN PRN Reason: Pain Last Admin: 12/02/17 00:47 Dose: 15 mg Lorazepam (Ativan) 0.5 mg PO QID PRN PRN Reason: Anxiety Magnesium Hydroxide (Milk Of Magnesia) 30 ml PO BID PRN PRN Reason: Constipation Miscellaneous Information (Remove Patch) 0 ea TRDERM DAILY [facility] Last Admin: 12/02/17 10:13 Dose: 1 ea Naloxone HCl (Narcan) 0.1 mg IVPUSH Q5M PRN PRN Reason: Oversedation Nicotine (Habitrol) 14 mg TRDERM DAILY [facility] Last Admin: 12/02/17 08:58 Dose: 14 mg Ondansetron HCl (Zofran) 4 mg IVPUSH Q6H PRN PRN Reason: Nausea/Vomiting Last Admin: 12/01/17 17:41 Dose: 4 mg Oxycodone/Acetaminophen (Percocet 325-5 Mg) 1 - 2 tab PO Q4H PRN PRN Reason: Pain Last Admin: 12/02/17 10:04 Dose: 2 tab Senna (Senna) 8.6 mg PO BID PRN PRN Reason: Constipation Venlafaxine HCl (Effexor Xr) 75 mg PO DAILY [facility] Last Admin: 12/02/17 08:55 Dose: 75 mg Discontinued Medications Bupivacaine HCl (Marcaine 0.25%) Confirm Administered Dose 30 ml .ROUTE .STK- MED ONE Stop: 12/01/17 13:49 Last Admin: 12/01/17 16:25 Dose: 30 ml Cefazolin Sodium (Ancef) Confirm Administered Dose 2 gm .ROUTE .STK-MED ONE Stop: 12/01/17 08:09 Clindamycin Phosphate (Cleocin) Confirm Administered Dose 900 mg .ROUTE .STK- MED ONE Stop: 12/01/17 13:49 Last Admin: 12/01/17 16:20 Dose: 900 mg Morphine Sulfate 8 mg/Epinephrine HCl 0.3 mg/Ketorolac Tromethamine 30 mg/ Sodium Chloride 27.9 ml 0 mg .XX ONETIME ONE Stop: 12/01/17 14:01 Last Admin: 12/02/17 06:08 Dose: Not Given Dexamethasone (Dexamethasone) Confirm Administered Dose 20 mg .ROUTE .STK-MED ONE Stop: 12/01/17 15:41 Diphenhydramine HCl (Benadryl) 25 mg IVPUSH Q4H PRN PRN Reason: Nausea Diphtheria/Tetanus/Acell Pertussis (Adacel) 0.5 ml IM .ONCE ONE Stop: 12/02/17 03:09 Epinephrine HCl (Adrenalin) Confirm Administered Dose 1 mg .ROUTE .STK-MED ONE Stop: 12/01/17 16:58 Fentanyl (Sublimaze) Confirm Administered Dose 100 mcg .ROUTE .STK-MED ONE Stop: 12/01/17 08:10 Fentanyl (Sublimaze) 50 mcg IVPUSH Q5M PRN PRN Reason: Pain Hydromorphone HCl (Dilaudid) 0.5 mg IVPUSH Q15M PRN PRN Reason: severe pain Lactated Ringer's (Ringers, Lactated) 1,000 mls @ 125 mls/hr IV ASDIRECTED [facility] Stop: 12/01/17 23:00 Last Admin: 12/01/17 13:20 Dose: 125 mls/hr Clindamycin Phosphate 600 mg/ (Sodium Chloride) 104 mls @ 100 mls/hr IV Q6H [facility] Stop: 12/02/17 19:31 Lidocaine HCl (Xylocaine-Mpf 1%) Confirm Administered Dose 10 mls @ as directed .ROUTE .ST-MED ONE Stop: 12/01/17 08:09 Lactated Ringer's (Ringers, Lactated) Confirm Administered Dose 1,000 mls @ as directed .ROUTE .ST-MED ONE Stop: 12/01/17 08:09 Clindamycin Phosphate 900 mg/ (Sodium Chloride) 106 mls @ 100 mls/hr IV ONETIME ONE Stop: 12/01/17 15:03 Last Admin: 12/01/17 13:39 Dose: 100 mls/hr Lactated Ringer's (Ringers, Lactated) Confirm Administered Dose 1,000 mls @ as directed .ROUTE .ST-MED ONE Stop: 12/01/17 15:03 Phenylephrine HCl 1 mg/ Sodium (Chloride) 10.1 mls @ 1 mls/sec IV TITRATE [facility] PRN Reason: Protocol Clindamycin Phosphate 600 mg/ (Sodium Chloride) 104 mls @ 100 mls/hr IV Q6H [facility] Stop: 12/01/17 16:58 Iodine (Iodine 2% Mild Tincture) Confirm Administered Dose 30 ml .ROUTE .STK- MED ONE Stop: 12/01/17 15:54 Last Admin: 12/01/17 16:16 Dose: 18 ml Ketorolac Tromethamine (Toradol) Confirm Administered Dose 30 mg .ROUTE .STK- MED ONE Stop: 12/01/17 08:09 Lidocaine/Sodium Bicarbonate (Buffered Lidocaine 1% In Ns 8.4%) 0.25 ml IDERM ONETIME PRN PRN Reason: Prior to IV Start Stop: 12/01/17 18:00 Last Admin: 12/01/17 13:19 Dose: 0.25 ml Midazolam HCl (Versed 1 Mg/Ml) Confirm Administered Dose 2 mg .ROUTE .STK-MED ONE Stop: 12/01/17 08:10 Midazolam HCl (Versed 1 Mg/Ml) 2 mg IVPUSH ONETIME PRN PRN Reason: Sedation Morphine Sulfate (Duramorph Pf) Confirm Administered Dose 1 mg .ROUTE .STK-MED ONE Stop: 12/01/17 07:39 Ondansetron HCl (Zofran) 4 mg IVPUSH ONETIME PRN PRN Reason: Nausea/Vomiting Phenylephrine HCl (Phenylephrine In Ns 100 Mcg/Ml) Confirm Administered Dose 1 mg .ROUTE .STK-MED ONE Stop: 12/01/17 16:29 Pneumococcal Polyvalent Vaccine (Pneumovax 23) 0.5 ml SUBCUT .ONCE ONE Stop: 12/01/17 23:04 Pneumococcal Polyvalent Vaccine (Pneumovax 23) 0.5 ml IM .ONCE ONE Stop: 12/02/17 06:47 Propofol (Diprivan 20 Ml) Confirm Administered Dose 400 mg .ROUTE .STK-MED ONE Stop: 12/01/17 08:09 Propofol (Diprivan 20 Ml) Confirm Administered Dose 200 mg .ROUTE .STK-MED ONE Stop: 12/01/17 16:05 Propofol (Diprivan 20 Ml) Confirm Administered Dose 200 mg .ROUTE .STK-MED ONE Stop: 12/01/17 16:05 Ropivacaine (Naropin 0.5%) Confirm Administered Dose 30 ml .ROUTE .STK-MED ONE Stop: 12/01/17 16:59 Scopolamine (Scopolamine) 1 each TRDERM ONETIME ONE Stop: 12/01/17 13:17 Last Admin: 12/01/17 13:35 Dose: 1 each Sodium Chloride (Saline Flush) 10 ml FLUSH ASDIRECTED PRN PRN Reason: Keep Vein Open Stop: 12/01/17 18:00 Tranexamic Acid (Cyklokapron) Confirm Administered Dose 1,000 mg .ROUTE .STK- MED ONE Stop: 12/01/17 13:49 Last Admin: 12/01/17 16:32 Dose: 1,000 mg Vancomycin HCl (Vancomycin) Confirm Administered Dose 1 gm .ROUTE .STK-MED ONE Stop: 12/01/17 13:49 Last Admin: 12/01/17 16:28 Dose: 1 gm - Exam Wound/Incisions: Dressing Dry and Intact General: Alert, Cooperative, No Acute Distress Lungs: Normal Respiratory Effort Extremities: Other (NVS intact for RLE. Arielle's negative.) - Problem List Review Problem List Initiated/Reviewed/Updated: Yes - My Orders Last 24 Hours: Active Orders 24 hr Category Date Time Status Communication Order [RC] ASDIRECTED Care 12/01/17 15:27 Active Cooling Warming Measures [RC] ASDIRECTED Care 12/01/17 15:27 Inactive Notify Provider [RC] ASDIRECTED Care 12/01/17 15:27 Active Oxygen Therapy [RC] ASDIRECTED Care 12/01/17 15:27 Active Pulse Oximetry [RC] ASDIRECTED Care 12/01/17 15:27 Active RT Aerosol Therapy [RC] ASDIRECTED Care 12/01/17 15:30 Active Vaccines to be Administered [RC] PER UNIT ROUTINE Care 12/02/17 03:08 Active Vital Signs [RC] Q1H Care 12/01/17 15:27 Inactive Regular Diet [DIET] Diet 12/01/17 Dinner Active Albuterol [Proventil HFA] Med 12/01/17 17:07 Active 0 gm INH Q4H PRN Albuterol [Proventil Neb Soln] Med 12/01/17 15:28 Active 2.5 mg NEB ONETIME PRN Aspirin [Ecotrin] Med 12/02/17 09:00 Active 325 mg PO BID Clindamycin Phosphate [Cleocin] 900 mg Med 12/01/17 20:00 Active Sodium Chloride 0.9% [Normal Saline] 100 ml IV Q6H Docusate Sodium [Colace] Med 12/01/17 21:00 Active 100 mg PO BID Famotidine [Pepcid] Med 12/01/17 21:00 Active 20 mg PO Q12H LORazepam [Ativan] Med 12/01/17 17:01 Active 0.5 mg PO QID PRN Nicotine [Habitrol] Med 12/02/17 00:45 Active 14 mg TRDERM DAILY Remove Patch Med 12/02/17 09:00 Active 0 ea TRDERM DAILY Venlafaxine [Effexor XR] Med 12/02/17 09:00 Active 75 mg PO DAILY diphenhydrAMINE [Benadryl] Med 12/01/17 15:28 Active 25 mg IVPUSH Q6H PRN ePHEDrine [ePHEDrine Sulfate] Med 12/01/17 15:28 Active 5 mg IVPUSH ASDIRECTED PRN Pulse Oximetry Continuous Monitoring [OM.PC] Routine Oth 12/01/17 15:27 Active Medication Orders Albuterol (Proventil Neb Soln) 2.5 mg NEB ONETIME PRN PRN Reason: wheezing/coughing Albuterol (Proventil Hfa) 0 gm INH Q4H PRN PRN Reason: Wheezing Aspirin (Ecotrin) 325 mg PO BID [facility] Last Admin: 12/02/17 08:54 Dose: 325 mg Bisacodyl (Dulcolax) 5 mg PO DAILY PRN PRN Reason: Constipation Cyclobenzaprine HCl (Flexeril) 10 mg PO TID PRN PRN Reason: Spasms Last Admin: 12/02/17 05:45 Dose: 10 mg Admin: 12/01/17 20:51 Dose: 10 mg Diphenhydramine HCl (Benadryl) 25 mg IVPUSH Q6H PRN PRN Reason: pruritis Last Admin: 12/02/17 10:11 Dose: 25 mg Admin: 12/02/17 02:14 Dose: 25 mg Admin: 12/01/17 19:16 Dose: 25 mg Docusate Sodium (Colace) 100 mg PO BID [facility] Last Admin: 12/02/17 08:56 Dose: 100 mg Admin: 12/01/17 20:51 Dose: 100 mg Ephedrine Sulfate (Ephedrine Sulfate) 5 mg IVPUSH ASDIRECTED PRN PRN Reason: Hypotension Famotidine (Pepcid) 20 mg PO Q12H [facility] Last Admin: 12/02/17 08:56 Dose: 20 mg Admin: 12/01/17 20:51 Dose: 20 mg Clindamycin Phosphate 900 mg/ (Sodium Chloride) 106 mls @ 100 mls/hr IV Q6H [facility] Stop: 12/02/17 20:01 Last Admin: 12/02/17 08:34 Dose: 100 mls/hr Infusion: 12/02/17 03:18 Dose: 100 mls/hr Admin: 12/02/17 02:14 Dose: 100 mls/hr Infusion: 12/01/17 21:57 Dose: 100 mls/hr Admin: 12/01/17 20:53 Dose: 100 mls/hr Ketorolac Tromethamine (Toradol) 15 mg IVPUSH Q6H PRN PRN Reason: Pain Last Admin: 12/02/17 00:47 Dose: 15 mg Lorazepam (Ativan) 0.5 mg PO QID PRN PRN Reason: Anxiety Magnesium Hydroxide (Milk Of Magnesia) 30 ml PO BID PRN PRN Reason: Constipation Miscellaneous Information (Remove Patch) 0 ea TRDERM DAILY [facility] Last Admin: 12/02/17 10:13 Dose: 1 ea Naloxone HCl (Narcan) 0.1 mg IVPUSH Q5M PRN PRN Reason: Oversedation Nicotine (Habitrol) 14 mg TRDERM DAILY [facility] Last Admin: 12/02/17 08:58 Dose: 14 mg Admin: 12/02/17 00:48 Dose: 14 mg Ondansetron HCl (Zofran) 4 mg IVPUSH Q6H PRN PRN Reason: Nausea/Vomiting Last Admin: 12/01/17 17:41 Dose: 4 mg Oxycodone/Acetaminophen (Percocet 325-5 Mg) 1 - 2 tab PO Q4H PRN PRN Reason: Pain Last Admin: 12/02/17 10:04 Dose: 2 tab Admin: 12/02/17 06:19 Dose: 2 tab Admin: 12/02/17 00:45 Dose: 2 tab Admin: 12/01/17 19:19 Dose: 2 tab Senna (Senna) 8.6 mg PO BID PRN PRN Reason: Constipation Venlafaxine HCl (Effexor Xr) 75 mg PO DAILY [facility] Last Admin: 12/02/17 08:55 Dose: 75 mg - Assessment Assessment (Free Text/Narrative):: POD#1 - right TKA - Plan Plan (Free Text/Narrative):: 1. Hgb 12.6. 2. ASA 325mg PO BID for VTE prophylaxis. Frequent mobility, TEDs. 3. f[facility]u [facility]. Outpatient P.T. also. 4. Discharge to home today. The pt's case was discussed with Dr. Gallegos.
[2017-12-02 13:26] VITALS: BP 107/63
--- NOTE | 2017-12-03 11:20 | PCM.DCSUM1 ---
Discharge Summary - Hospital Course Brief History: Jazmine is a 42 yo female who underwent right TKA with Dr. Gallegos on 12-01-2017. The procedure was completed under spinal anesthesia. The pt tolerated the procedure well and was admitted to the [facility] under Medical- Surgical status. Medical management was provided by the Hospitalist service. The pt's Hospital course was uneventful. The pt's Hgb on POD#1 was 12.6. On POD#1, 325mg ASA BID was initiated for VTE prophylaxis. SCDs and TEDs were also ordered. A Mepilex dressing was placed at the incision site at the time of surgery and remained clean and dry. The pt participated in P.T. and O.T. and progressed well. The pt was allowed to WBAT and used a FWW for mobility. On POD#1, the pt was deemed appropriate to discharge to home. - Discharge Data Discharge Date: 12/02/17 Discharge Disposition: Home, Self-Care 01 Condition: Good - Patient Summary/Data Consults: Consultations 12/01/17 06:57 OT Evaluation and Treatment [CONS] Routine PT Evaluation and Treatment [CONS] Routine 12/01/17 06:58 Consult to Physician [CONS] Routine - Patient Instructions Diet: Usual Diet as Tolerated Activity: Apply Ice, As Tolerated, Elevate Extremity, Full Weight Bearing Driving: Do Not Drive Showering/Bathing: May Shower Wound/Incision Care: Keep Operative Site/Wound Site Clean and Dry, Do NOT Change Dressing Notify Provider of: Fever, Increased Pain, Swelling and Redness, Drainage, Nausea and/or Vomiting Other/Special Instructions: Please get up and moving around every hour while awake. This helps to prevent blood clots. Please take 325mg aspirin twice daily - this also helps to prevent blood clots. The medication is being used for blood clot prevention and not for pain control, so please use the medication twice daily as directed. Please wear the DEXTER hose during the day and you may remove them at night. Please schedule for P.T. Complete the P.T. exercises and stretches that were instructed in the Hospital. Please use the pain medication and muscle relaxant as needed. The medication may cause drowsiness and/or constipation. You could use a stool softener like docusate sodium or Colace 100mg twice daily and/or a laxative like Miralax daily for constipation. Contact your primary care provider for further instructions if you are constipated. Please schedule an appointment with your primary care provider for 'routine post-op care'. Use the incentive spirometer often. Please place ice to the knee often. Please elevate the limb to decrease swelling. Keep the Mepilex dressing in place until follow-up. Please call [phone] with questions or concerns. - Discharge Plan Prescriptions/Med Rec: Acetaminophen/oxyCODONE [Percocet 325-5 MG] 1 - 2 tab PO Q4H PRN #60 tablet PRN Reason: Pain Aspirin [Ecotrin] 325 mg PO BID #84 tab.ec Cyclobenzaprine [Flexeril] 10 mg PO TID PRN #40 tablet PRN Reason: Spasms Famotidine [Pepcid] 20 mg PO Q12H #84 tablet Home Medications: Home Meds Zolpidem [Ambien] 10 mg PO BEDTIME 09/03/14 [History] Venlafaxine [Effexor XR] 75 mg PO DAILY 11/13/15 [History] Acetaminophen/oxyCODONE [Percocet 325-5 MG] 1 - 2 tab PO Q4H PRN #60 tablet [Rx] Aspirin [Ecotrin] 325 mg PO BID #84 tab.ec 12/02/17 [Rx] Cyclobenzaprine [Flexeril] 10 mg PO TID PRN #40 tablet 12/02/17 [Rx] Docusate Sodium [Colace] 100 mg PO BID cap 12/02/17 [Rx] Famotidine [Pepcid] 20 mg PO Q12H #84 tablet 12/02/17 [Rx] Patient Handouts: Total Knee Replacement, Care After, Total Knee Replacement Referrals: Nataliya Vale PA-C [Physician [employer]] - 12/09/17 2:15 pm - Patient Data Vitals - Most Recent: Last Vital Signs Temp 98.1 F 12/02/17 12:00 Pulse 71 12/02/17 12:00 Resp 15 12/02/17 15:00 BP 107/63 12/02/17 12:00 Pulse Ox 100 12/02/17 15:00 Weight - Most Recent: 205 lb I&O - Last 24 hours: Intake & Output 12/02/17 12/03/17 12/03/17 22:59 06:59 14:59 Intake Total 300 Balance 300 Med Orders - Current: Current Medications Discontinued Medications Albuterol (Proventil Neb Soln) 2.5 mg NEB ONETIME PRN PRN Reason: wheezing/coughing Albuterol (Proventil Hfa) 0 gm INH Q4H PRN PRN Reason: Wheezing Aspirin (Ecotrin) 325 mg PO BID [facility] Last Admin: 12/02/17 08:54 Dose: 325 mg Bisacodyl (Dulcolax) 5 mg PO DAILY PRN PRN Reason: Constipation Bupivacaine HCl (Marcaine 0.25%) Confirm Administered Dose 30 ml .ROUTE .STK- MED ONE Stop: 12/01/17 13:49 Last Admin: 12/01/17 16:25 Dose: 30 ml Cefazolin Sodium (Ancef) Confirm Administered Dose 2 gm .ROUTE .STK-MED ONE Stop: 12/01/17 08:09 Clindamycin Phosphate (Cleocin) Confirm Administered Dose 900 mg .ROUTE .STK- MED ONE Stop: 12/01/17 13:49 Last Admin: 12/01/17 16:20 Dose: 900 mg Morphine Sulfate 8 mg/Epinephrine HCl 0.3 mg/Ketorolac Tromethamine 30 mg/ Sodium Chloride 27.9 ml 0 mg .XX ONETIME ONE Stop: 12/01/17 14:01 Last Admin: 12/02/17 06:08 Dose: Not Given Cyclobenzaprine HCl (Flexeril) 10 mg PO TID PRN PRN Reason: Spasms Last Admin: 12/02/17 12:48 Dose: 10 mg Dexamethasone (Dexamethasone) Confirm Administered Dose 20 mg .ROUTE .STK-MED ONE Stop: 12/01/17 15:41 Diphenhydramine HCl (Benadryl) 25 mg IVPUSH Q4H PRN PRN Reason: Nausea Diphenhydramine HCl (Benadryl) 25 mg IVPUSH Q6H PRN PRN Reason: pruritis Last Admin: 12/02/17 10:11 Dose: 25 mg Diphtheria/Tetanus/Acell Pertussis (Adacel) 0.5 ml IM .ONCE ONE Stop: 12/02/17 03:09 Last Admin: 12/02/17 14:59 Dose: 0.5 ml Docusate Sodium (Colace) 100 mg PO BID [facility] Last Admin: 12/02/17 08:56 Dose: 100 mg Ephedrine Sulfate (Ephedrine Sulfate) 5 mg IVPUSH ASDIRECTED PRN PRN Reason: Hypotension Epinephrine HCl (Adrenalin) Confirm Administered Dose 1 mg .ROUTE .ST-MED ONE Stop: 12/01/17 16:58 Famotidine (Pepcid) 20 mg PO Q12H [facility] Last Admin: 12/02/17 08:56 Dose: 20 mg Fentanyl (Sublimaze) Confirm Administered Dose 100 mcg .ROUTE .[email or web address]MED ONE Stop: 12/01/17 08:10 Fentanyl (Sublimaze) 50 mcg IVPUSH Q5M PRN PRN Reason: Pain Hydromorphone HCl (Dilaudid) 0.5 mg IVPUSH Q15M PRN PRN Reason: severe pain Lactated Ringer's (Ringers, Lactated) 1,000 mls @ 125 mls/hr IV ASDIRECTED [facility] Stop: 12/01/17 23:00 Last Admin: 12/01/17 13:20 Dose: 125 mls/hr Clindamycin Phosphate 600 mg/ (Sodium Chloride) 104 mls @ 100 mls/hr IV Q6H [facility] Stop: 12/02/17 19:31 Lidocaine HCl (Xylocaine-Mpf 1%) Confirm Administered Dose 10 mls @ as directed .ROUTE .[facility] [[email or web address]]-MED ONE Stop: 12/01/17 08:09 Lactated Ringer's (Ringers, Lactated) Confirm Administered Dose 1,000 mls @ as directed .ROUTE .[facility] [[email or web address]]-MED ONE Stop: 12/01/17 08:09 Clindamycin Phosphate 900 mg/ (Sodium Chloride) 106 mls @ 100 mls/hr IV ONETIME ONE Stop: 12/01/17 15:03 Last Admin: 12/01/17 13:39 Dose: 100 mls/hr Lactated Ringer's (Ringers, Lactated) Confirm Administered Dose 1,000 mls @ as directed .ROUTE .[facility] [[email or web address]]-MED ONE Stop: 12/01/17 15:03 Phenylephrine HCl 1 mg/ Sodium (Chloride) 10.1 mls @ 1 mls/sec IV TITRATE [facility]N PRN Reason: Protocol Clindamycin Phosphate 900 mg/ (Sodium Chloride) 106 mls @ 100 mls/hr IV Q6H [facility] Stop: 12/02/17 20:01 Last Admin: 12/02/17 14:23 Dose: 100 mls/hr Clindamycin Phosphate 600 mg/ (Sodium Chloride) 104 mls @ 100 mls/hr IV Q6H [facility] Stop: 12/01/17 16:58 Iodine (Iodine 2% Mild Tincture) Confirm Administered Dose 30 ml .ROUTE .STK- MED ONE Stop: 12/01/17 15:54 Last Admin: 12/01/17 16:16 Dose: 18 ml Ketorolac Tromethamine (Toradol) 15 mg IVPUSH Q6H PRN PRN Reason: Pain Last Admin: 12/02/17 12:52 Dose: 15 mg Ketorolac Tromethamine (Toradol) Confirm Administered Dose 30 mg .ROUTE .STK- MED ONE Stop: 12/01/17 08:09 Lidocaine/Sodium Bicarbonate (Buffered Lidocaine 1% In Ns 8.4%) 0.25 ml IDERM ONETIME PRN PRN Reason: Prior to IV Start Stop: 12/01/17 18:00 Last Admin: 12/01/17 13:19 Dose: 0.25 ml Lorazepam (Ativan) 0.5 mg PO QID PRN PRN Reason: Anxiety Magnesium Hydroxide (Milk Of Magnesia) 30 ml PO BID PRN PRN Reason: Constipation Midazolam HCl (Versed 1 Mg/Ml) Confirm Administered Dose 2 mg .ROUTE .STK-MED ONE Stop: 12/01/17 08:10 Midazolam HCl (Versed 1 Mg/Ml) 2 mg IVPUSH ONETIME PRN PRN Reason: Sedation Miscellaneous Information (Remove Patch) 0 ea TRDERM DAILY [facility] Last Admin: 12/02/17 10:13 Dose: 1 ea Morphine Sulfate (Duramorph Pf) Confirm Administered Dose 1 mg .ROUTE .STK-MED ONE Stop: 12/01/17 07:39 Naloxone HCl (Narcan) 0.1 mg IVPUSH Q5M PRN PRN Reason: Oversedation Nicotine (Habitrol) 14 mg TRDERM DAILY [facility] Last Admin: 12/02/17 08:58 Dose: 14 mg Ondansetron HCl (Zofran) 4 mg IVPUSH Q6H PRN PRN Reason: Nausea/Vomiting Last Admin: 12/01/17 17:41 Dose: 4 mg Ondansetron HCl (Zofran) 4 mg IVPUSH ONETIME PRN PRN Reason: Nausea/Vomiting Oxycodone/Acetaminophen (Percocet 325-5 Mg) 1 - 2 tab PO Q4H PRN PRN Reason: Pain Last Admin: 12/02/17 15:08 Dose: 2 tab Phenylephrine HCl (Phenylephrine In Ns 100 Mcg/Ml) Confirm Administered Dose 1 mg .ROUTE .STK-MED ONE Stop: 12/01/17 16:29 Pneumococcal Polyvalent Vaccine (Pneumovax 23) 0.5 ml SUBCUT .ONCE ONE Stop: 12/01/17 23:04 Last Admin: 12/02/17 15:02 Dose: 0.5 ml Pneumococcal Polyvalent Vaccine (Pneumovax 23) 0.5 ml IM .ONCE ONE Stop: 12/02/17 06:47 Propofol (Diprivan 20 Ml) Confirm Administered Dose 400 mg .ROUTE .STK-MED ONE Stop: 12/01/17 08:09 Propofol (Diprivan 20 Ml) Confirm Administered Dose 200 mg .ROUTE .STK-MED ONE Stop: 12/01/17 16:05 Propofol (Diprivan 20 Ml) Confirm Administered Dose 200 mg .ROUTE .STK-MED ONE Stop: 12/01/17 16:05 Ropivacaine (Naropin 0.5%) Confirm Administered Dose 30 ml .ROUTE .STK-MED ONE Stop: 12/01/17 16:59 Scopolamine (Scopolamine) 1 each TRDERM ONETIME ONE Stop: 12/01/17 13:17 Last Admin: 12/01/17 13:35 Dose: 1 each Senna (Senna) 8.6 mg PO BID PRN PRN Reason: Constipation Sodium Chloride (Saline Flush) 10 ml FLUSH ASDIRECTED PRN PRN Reason: Keep Vein Open Stop: 12/01/17 18:00 Tranexamic Acid (Cyklokapron) Confirm Administered Dose 1,000 mg .ROUTE .STK- MED ONE Stop: 12/01/17 13:49 Last Admin: 12/01/17 16:32 Dose: 1,000 mg Vancomycin HCl (Vancomycin) Confirm Administered Dose 1 gm .ROUTE .STK-MED ONE Stop: 12/01/17 13:49 Last Admin: 12/01/17 16:28 Dose: 1 gm Venlafaxine HCl (Effexor Xr) 75 mg PO DAILY [facility] Last Admin: 12/02/17 08:55 Dose: 75 mg *Q Meaningful Use (DIS) - VTE *Q VTE Criteria *Q: - Stroke *Q Stroke Criteria *Q: - AMI *Q AMI Criteria *Q:
--- NOTE | 2017-12-04 08:35 | PCM.OPNOTE ---
- General Post-Op/Procedure Note Date of Surgery/Procedure: 12/01/17 Operative Procedure(s): right total knee arthroplasty Pre Op Diagnosis: right knee osteoarthrosis Post-Op Diagnosis: Same Anesthesia Technique: Local, MAC, Spinal Primary Surgeon: Justin Gallegos Anesthesia Provider: Montserrat Archer [employer] Sorter: Nataliya Vale Agricultural Produce Sorter: Reema De León EBL in mLs: 550 Complications: None Condition: Good Free Text/Narrative:: size 4 CR femur size 3 tibia 3 CS 9mm 32x10
--- NOTE | 2017-12-08 13:21 | OR ---
DATE OF OPERATION: 12/01/2017 SURGEON: Justin Gallegos MD OPERATION PERFORMED: Right total knee arthroplasty. PREOPERATIVE DIAGNOSIS: Right knee osteoarthrosis. POSTOPERATIVE DIAGNOSIS: Right knee osteoarthrosis. ANESTHESIA: Local MAC with spinal. ANESTHESIA PROVIDER: Montserrat Archer CRNA. ASSISTANTS: Nataliya Vale PA-C, and Reema De León LPN. ESTIMATED BLOOD LOSS: 550 mL. COMPLICATIONS: None. CONDITION: Stable. IMPLANTS: 1. [place]ierry size 4 press-fit CR femur. 2. [place] size 3 press-fit tibial base plate. 3. [place] size 3 CS 9 mm polyethylene. 4. [place] size 32 x 10 mm press-fit patella. DESCRIPTION OF PROCEDURE: The patient was identified in the preop holding area. Proper site was marked and identified by the surgeon. The patient was taken to the operative theater where after adequate anesthesia, the patient's left lower extremity had a nonsterile tourniquet applied and was then sterilely prepped and draped in the usual sterile fashion. OR time-out was performed. The patient received 2 g IV Ancef. At this time, the right lower extremity was exsanguinated. Tourniquet was insufflated to 250 mmHg. Standard anteromedial parapatellar incision was made and medial parapatellar arthrotomy was created to make sure not to disrupt the cartilage. At this time, we did examine both patellofemoral and mediolateral compartments. The patient did have significant medial stripe wear in the medial compartment. It was in need of a total knee arthroplasty versus a patellofemoral arthroplasty at this time. At this time, we were going to proceed with a total knee arthroplasty. At this time, the anterior fat pad was resected and the deep fibers of the MCL were raised. Attention was turned to the patella. Patella measured a 23 and was resected to a 13 for a 32 x 10 mm patella. At this time drill hole was placed intramedullary in the distal femur. Intramedullary distal femoral cutting guide was then placed and 8 mm resected off the distal femur. Sizing guide was then placed. It was found to be a size 4 femur. Epicondylar access holes were then drilled, 4-in-1 cutting block then for size 4 was placed. Anteroposterior and anterior and posterior chamfer cuts were then completed and found to be adequate. At this time, attention was turned to the tibia. The ACL was resected and the PCL remained intact. At this time, the extramedullary tibial cutting guide was placed in the old footprint of the ACL and 9 mm was measured off the unaffected lateral side making sure that the jig was set for the center of the ankle and 3 degrees of posterior slope. At this time resection of the tibia was carried out. It was found to be an adequate resection. At this time, a size 3 base plate was found to have adequate coverage. The medial and lateral meniscus were then removed along with any osteophytes. Size 3 trial base plate was placed along the size 4 trial femur. 9 mm trial spacer was then placed. The patient had full extension and flexion and an alignment was set for the center of the ankle. At this time, the size 3 press-fit tibial base plate was impacted into place, the size 4 CR femur was impacted into place and a size 3 CS 9 mm insert was impacted into place. A 32 x 10 mm patella was then press-fit into place. The tourniquet was deflated. At this time, all bleeders were cauterized. 1 L dilute Betadine solution was irrigated through the knee along with 3 L pulse lavage irrigation with Ancef. Periarticular injection was then completed. Topical tranexamic acid and vancomycin powder were then placed. A #2 barbed suture was used for closure of the medial parapatellar arthrotomy. A 2-0 Vicryl was used subcutaneously and a running 3-0 Monocryl with Prineo was used for the skin. The patient tolerated the procedure well and sent to PACU in stable condition. ESTHER /[id number]
== END 2017-12-02 16:45 | disposition home or self-care (01) ==
LOC: JD.OB 06:58 → JD.SDS 06:58 → UNDOADMIN 06:58 → JD.OB 06:58 → EDSTATUS 08:00 → JD.SDS 13:02 → UNDOFXSDCACCOM 13:02 → UNDOFXSDCRRACCOM 13:02 → JD.SDS 13:03 → JD.MS 13:03 → JD.OB 16:00 → UNDODISIN 12-02 16:45 → JD.SDS 12-02 16:45
PROVIDERS: ATTEND Orthopaedic Surgery
DX: M17.0 Bilateral primary osteoarthritis of knee (principal); J45.909 Unspecified asthma, uncomplicated; Z88.0 Allergy status to penicillin; Z88.8 Allergy status to other drugs, medicaments and biological substances; Z88.1 Allergy status to other antibiotic agents; Z91.018 Allergy to other foods; F32.9 Major depressive disorder, single episode, unspecified; F17.200 Nicotine dependence, unspecified, uncomplicated; L29.9 Pruritus, unspecified; E66.9 Obesity, unspecified; Z68.32 Body mass index [BMI] 32.0-32.9, adult; Z23 Encounter for immunization
CPT/HCPCS: 27447; 36415; 73560; 80053; 85027; 87641; 90471; 90715; 90732; 94762; 97110; 97116; 97161; 97165; 97535; A9270; C1776; G0009; J0171; J1100; J1200; J1885; J2250; J2270; J2274; J2405; J2795; J3010; J3370; J3490; J7030; J7120; 01402; 64450; J0690; J2001; J2704

== ENCOUNTER 2017-12-07 19:55 | Emergency (ER) | payer OTHER ==
[2017-12-07 20:14] VITALS: BP 131/103
[2017-12-07] MEDS ORDERED: Sodium Chloride 0.9% 10 ML Syringe FLUSH PRN (20:36)
[2017-12-07] MEDS ORDERED: Ketorolac 30 MG/ML SDV IVPUSH ONE (20:36)
[2017-12-07] MEDS ORDERED: HYDROmorphone 0.5 MG/0.5 ML Syringe IVPUSH ONE (20:37)
--- NOTE | 2017-12-07 20:38 | EDM.PDOC ---
ED HPI GENERAL MEDICAL PROBLEM - General Chief Complaint: Lower Extremity Injury/Pain Stated Complaint: POSS BLOOD CLOT IN LEG Time Seen by Provider: 12/07/17 20:20 Source of Information: Reports: Patient History Limitations: Reports: No Limitations - History of Present Illness INITIAL COMMENTS - FREE TEXT/NARRATIVE: Patient is a 42-year-old female who presents ED complaining of right lower extremity pain. Patient recently had a total right knee replacement this past Friday by Dr. Gallegos. Since surgery patient's been experiencing worsening pain to the right leg. Due to the increasing pain she has not been as mobile as she is supposed to be. She has been getting up to walk to go to the bathroom with the assistance of a walker. Over the past few days the pain to the posterior aspect of the calf has grown increasingly worse with swelling noted. Very painful upon palpation and weightbearing. No sensory changes noted distally. Impregnated antibiotic dressing remains intact. Only faint redness noted to the incision site. Patient denies any fever, chest pain, short of breath, history of DVT, nausea vomiting, numbness or tingling, or any additional complaints. She has been taking Percocet and OxyContin as prescribed. There has been minimal relief as of recent. She does have a history of chronic narcotic use. Right Lower Posterior Leg Pain Score (Numeric/FACES): 9 - Related Data Allergies Allergy/AdvReac Type Severity Reaction Status Date / Time tree nut Allergy Severe Anaphylactic Verified 12/07/17 20:13 Shock levofloxacin [From Levaquin] Allergy Rash Verified 12/07/17 20:13 metronidazole [From Flagyl] Allergy Rash Verified 12/07/17 20:13 Penicillins Allergy Hives Verified 12/07/17 20:13 meperidine HCl [From Demerol] AdvReac Nausea Verified 12/07/17 20:13 Home Meds: Home Meds Zolpidem [Ambien] 10 mg PO BEDTIME 09/03/14 [History] Venlafaxine [Effexor XR] 75 mg PO DAILY 11/13/15 [History] Docusate Sodium [Colace] 100 mg PO BID cap 12/02/17 [Rx] Famotidine [Pepcid] 20 mg PO Q12H #84 tablet 12/02/17 [Rx] Acetaminophen/oxyCODONE [Percocet 325-5 MG] 2 tab PO Q4H PRN #60 tablet [Rx] Cyclobenzaprine [Flexeril] 10 mg PO TID PRN #40 tablet 12/07/17 [Rx] LORazepam 1 tab PO Q4H PRN 12/07/17 [History] Rivaroxaban [Xarelto] 15 mg PO BID #42 tablet 12/07/17 [Rx] Rivaroxaban [Xarelto] 20 mg PO QAM #30 tablet 12/07/17 [Rx] Past Medical History HEENT History: Reports: Allergic Rhinitis, Other (See Below) Other HEENT History: reports snoring Cardiovascular History: Reports: None Respiratory History: Reports: Asthma Gastrointestinal History: Reports: Cholelithiasis Genitourinary History: Reports: None T RAIL TURNER History: Reports: , Other (See Below) Other OB/BYN History: breast reduction Musculoskeletal History: Reports: Arthritis, Other (See Below) Other Musculoskeletal History: current visit for right total knee Neurological History: Reports: Concussion Psychiatric History: Reports: Anxiety, Depression, Panic Attack Other Psychiatric History: Effexor 37.5 mg Endocrine/Metabolic History: Reports: None Hematologic History: Reports: Iron Deficiency Other Hematologic History: iron deficiency after Immunologic History: Reports: None Oncologic (Cancer) History: Reports: None Dermatologic History: Reports: Other (See Below) Other Dermatologic History: reports that she had a ingrown hair that got infected and she had to have surgery to remove and clean it out. She states that she was in the hospital for 6 days as she had a staph and strep infection - Infectious Disease History Infectious Disease History: Reports: C-Difficile, Chicken Pox - Past Surgical History Head Surgeries/Procedures: Reports: None HEENT Surgical History: Reports: Adenoidectomy, Tonsillectomy Cardiovascular Surgical History: Reports: None Respiratory Surgical History: Reports: None GI Surgical History: Reports: Appendectomy, Cholecystectomy Female Surgical History: Reports: Breast Reduction, Section, D&C, Hysterectomy Endocrine Surgical History: Reports: None Neurological Surgical History: Reports: None Musculoskeletal Surgical History: Reports: Joint Replacement, Knee Replacement Dermatological Surgical History: Reports: Skin Biopsy, Other (See Below) Social & Family History - Family History Family Medical History: Noncontributory - Tobacco Use Smoking Status *Q: Former Smoker Years of Tobacco use: 3 Packs/Tins Daily: 0.5 Used Tobacco, but Quit: Yes Month Tobacco Last Used: Nov 2017 Second Hand Smoke Exposure: No - Caffeine Use Caffeine Use: Reports: Coffee - Alcohol Use Days Per Week of Alcohol Use: 0 Number of Drinks Per Day: 0 Total Drinks Per Week: 0 - Recreational Drug Use Recreational Drug Use: No Drug Use in Last 12 Months: No Review of Systems - Review of Systems Review Of Systems: ROS reveals no pertinent complaints other than HPI. ED EXAM, GENERAL - Physical Exam Exam: See Below Exam Limited By: No Limitations General Appearance: Alert, WD/WN, Mild Distress Ears: Hearing Grossly Normal Nose: Normal Inspection Throat/Mouth: Normal Voice, No Airway Compromise Neck: Normal Inspection, Supple Respiratory/Chest: No Respiratory Distress, Lungs Clear, Normal Breath Sounds, No Accessory Muscle Use, Chest Non-Tender Cardiovascular: Normal Peripheral Pulses, Regular Rate, Rhythm, No Murmur Peripheral Pulses: 3+: Radial (L), Radial (R), Posterior Tibial (L), Posterior Tibial (R) GI/Abdominal: Normal Bowel Sounds, Soft, Non-Tender, No Organomegaly, No Distention Extremities: Other (Antibiotic impregnated dressing to the right anterior knee with swelling noted and mild erythema. Bruising present to the right knee worsen with dependent gravity. Increased swelling to the right calf with bruising noted. Pain with palpation. No sensory deficits distally. Pulses are intact.) Neurological: Alert, Oriented, CN II-XII Intact, Normal Cognition, No Motor/ Sensory Deficits Psychiatric: Normal Affect, Normal Mood Skin Exam: Warm, Dry, Intact Course - Vital Signs Last Recorded V/S: Last Vital Signs Temp 97.1 F 12/07/17 20:08 Pulse 97 12/07/17 20:08 Resp 20 12/07/17 20:08 BP 131/103 H 12/07/17 20:08 Pulse Ox 97 12/07/17 20:08 - Orders/Labs/Meds Orders: Active Orders 24 hr Category Date Time Status Peripheral IV Care [RC] . DIRECTED Care 12/07/17 20:37 Active Peripheral IV Insertion Adult [OM.PC] Routine Oth 12/07/17 20:36 Ordered Labs: Laboratory Tests 12/07/17 12/07/17 12/07/17 Range/Units 20:50 20:50 20:50 WBC 9.47 (3.98-10.04) K/mm3 RBC 3.81 L (3.98-5.22) M/mm3 Hgb 11.7 (11.2-15.7) gm/L Hct 33.9 L (34.1-44.9) % MCV 89.0 (79.4-94.8) fl MCH 30.7 (25.6-32.2) pg MCHC 34.5 (32.2-35.5) g/dl RDW Std Deviation 39.5 (36.4-46.3) fL Plt Count 212 (182-369) K/mm3 MPV 10.3 (9.4-12.3) fl Neut % (Auto) 60.1 (34.0-71.1) % Lymph % (Auto) 28.2 (19.3-51.7) % [place] % (Auto) 8.3 (4.7-12.5) % Eos % (Auto) 2.6 (0.7-5.8) Baso % (Auto) 0.5 (0.1-1.2) % Neut # (Auto) 5.68 (1.56-6.13) K/mm3 Lymph # (Auto) 2.67 (1.18-3.74) K/mm3 [place] # (Auto) 0.79 H (0.24-0.36) K/mm3 Eos # (Auto) 0.25 (0.04-0.36) K/mm3 Baso # (Auto) 0.05 (0.01-0.08) K/mm3 PT 9.5 (8.0-13.0) SECONDS INR 0.88 APTT 25 (22-36) SECONDS Sodium 136 (136-145) mEq/L Potassium 3.8 (3.5-5.1) mEq/L Chloride 102 (98-107) mEq/L Carbon Dioxide 28 (21-32) mEq/L Anion Gap 9.8 (5-15) BUN 11 (7-18) mg/dL Creatinine 0.9 (0.55-1.02) mg/dL Est Cr Clr Drug Dosing 79.99 mL/min Estimated GFR (MDRD) > 60 (>60) mL/min BUN/Creatinine Ratio 12.2 L (14-18) Glucose 107 H (74-106) mg/dL Calcium 9.0 (8.5-10.1) mg/dL Total Bilirubin 0.3 (0.2-1.0) mg/dL AST 14 L (15-37) U/L ALT 20 (14-59) U/L Alkaline Phosphatase 76 (46-116) U/L C-Reactive Protein 10.7 H* (<1.0) mg/dL Total Protein 6.9 (6.4-8.2) g/dl Albumin 2.8 L (3.4-5.0) g/dl Globulin 4.1 gm/dL Albumin/Globulin Ratio 0.7 L (1-2) Meds: Medications Discontinued Medications Generic Name Dose Route Start Last Admin Trade Name Freq PRN Reason Stop Dose Admin Hydromorphone HCl 0.5 mg 12/07/17 20:37 12/07/17 20:50 Dilaudid IVPUSH 12/07/17 20:38 0.5 mg ONETIME ONE Administration Sodium Chloride 1,000 mls @ 125 mls/hr 12/07/17 20:45 12/07/17 20:50 Normal Saline IV 125 mls/hr ASDIRECTED HERNAN Administration Ketorolac Tromethamine 30 mg 12/07/17 20:36 12/07/17 20:49 Toradol IVPUSH 12/07/17 20:37 30 mg ONETIME ONE Administration Sodium Chloride 10 ml 12/07/17 20:36 12/07/17 20:50 Saline Flush FLUSH 10 ml ASDIRECTED PRN Administration Keep Vein Open - Re-Assessments/Exams Free Text/Narrative Re-Assessment/Exam: IV established with Dilaudid 0.5 mg and Toradol 30 mg IVP. Normal saline 125 mL started as well. Initial labs and studies will include CBC, chem 14, CRP, coag studies, and VL duplex of the right lower extremity. Labs reviewed: CBC essentially normal. Chemistry panel is essentially normal as well. CRP elevated 10.7. Spoke with the [facility] radiologist indicating DVT present to the right popliteal vein extending caudally into the tibial vein. Patient is requesting admission to the hospital for pain control. I told patient I do not believe she will meet admission criteria. But will speak with administration physician hospitalist. 12/07/17 22:[address] Jha and he does not believe she meets admission criteria. Discussed with patient options for anticoagulation including: Warfarin, xarelto , and Eliquis. Adverse side effects along with alternative treatments discussed with patient. She has elected to be started on xarelto. Ordered xarelto 15mg PO. Discharge instructions as documented. VSS BP 112/82 HR 88. Departure - Departure Time of Disposition: 22:32 Disposition: Home, Self-Care 01 Condition: Good Clinical Impression: S/P total knee replacement Qualifiers: Laterality: right Qualified Code(s): Z96.651 - Presence of right artificial knee joint DVT of leg (deep venous thrombosis) Qualifiers: Affected thrombotic vein of extremity: popliteal Chronicity: acute Laterality: right Qualified Code(s): I82.431 - Acute embolism and thrombosis of right popliteal vein - Discharge Information Prescriptions: Acetaminophen/oxyCODONE [Percocet 325-5 MG] 2 tab PO Q4H PRN #60 tablet PRN Reason: Pain Cyclobenzaprine [Flexeril] 10 mg PO TID PRN #40 tablet PRN Reason: Spasms Rivaroxaban [Xarelto] 15 mg PO BID #42 tablet Rivaroxaban [Xarelto] 20 mg PO QAM #30 tablet Instructions: Pain Medicine Instructions, [id number] Referrals: Vandana Mckeon NP [Primary Care Provider] - Justin Gallegos MD [Physician] - Forms: ED Department Discharge Additional Instructions: As discussed you have a blood clot to the right lower extremity. Thus treatment will include xarelto 15 mg twice a day for the next 21 days. Take 20 mg by mouth every day thereafter. Continue taking Percocet 2 tabs every 4 hours as needed for pain. Continue wearing compression stockings as instructed. Continue to follow instructions status post surgery by orthopedic surgeon. Utilize walker to ambulate. Return to the ED if you develop increased swelling, worsening pain, shortness of breath, and/or chest pain. Keep appointment with Dr. Gallegos for this coming Friday. - My Orders Last 24 Hours: My Active Orders 12/07/17 20:36 Peripheral IV Insertion Adult [OM.PC] Routine 12/07/17 20:37 Peripheral IV Care [RC] . DIRECTED - Assessment/Plan Last 24 Hours: My Active Orders 12/07/17 20:36 Peripheral IV Insertion Adult [OM.PC] Routine 12/07/17 20:37 Peripheral IV Care [RC] . DIRECTED
[2017-12-07] MEDS ORDERED: Sodium Chloride 0.9% 1,000 ML IV SCH (20:45)
--- NOTE | 2017-12-08 07:42 | US ---
Right lower extremity deep venous ultrasound: Duplex and color flow imaging was obtained of the right common femoral, proximal greater saphenous, superficial femoral, popliteal, posterior tibial and peroneal veins. Peroneal vein not optimally seen. Intraluminal thrombus is identified within the popliteal vein extending into the right posterior tibial vein. Left common femoral vein is patent. Impression: 1. Small amount of clot within the popliteal vein extending into the posterior tibial vein compatible with deep venous thrombosis. Diagnostic code #5 Agree with preliminary report issued by [facility] ([facility] preliminary report dictated on 12/07/17, 10:55 PM Central Time)
== END 2017-12-07 23:00 | disposition home or self-care (01) ==
LOC: JD.ED 19:55
DX: I82.431 Acute embolism and thrombosis of right popliteal vein (principal); Z88.8 Allergy status to other drugs, medicaments and biological substances; Z88.0 Allergy status to penicillin; Z91.018 Allergy to other foods; Z79.899 Other long term (current) drug therapy; Z87.891 Personal history of nicotine dependence; Z96.651 Presence of right artificial knee joint
CPT/HCPCS: 36415; 80053; 85025; 85610; 85730; 86140; 93971; 96361; 96374; 96375; 99284; J1170; J1885; J7040; J7050

== ENCOUNTER 2017-12-08 15:40 | Inpatient (IN) | payer OTHER ==
[2017-12-08] MEDS ORDERED: Sodium Chloride 0.9% 10 ML Syringe FLUSH PRN (16:32)
[2017-12-08] MEDS ORDERED: HYDROmorphone 0.5 MG/0.5 ML Syringe IVPUSH ONE (16:33)
--- NOTE | 2017-12-08 16:40 | EDM.PDOC ---
ED HPI GENERAL MEDICAL PROBLEM - General Chief Complaint: Lower Extremity Injury/Pain Stated Complaint: R LEG PAIN Time Seen by Provider: 12/08/17 16:19 Source of Information: Reports: Patient History Limitations: Reports: No Limitations - History of Present Illness INITIAL COMMENTS - FREE TEXT/NARRATIVE: Patient is a 42-year-old female who presents to the ED complaining of right lower leg pain. Patient was evaluated yesterday diagnosed with DVT and started on xarelto. She just recently underwent right total knee replacement this past Friday by Dr. Gallegos. She was on aspirin full dose status post surgery but was inactive secondary to pain not controlled with narcotics. She does have a history of chronic narcotic use. She presents today with worsening pain to the posterior aspect leg. Inability to bend it secondary to discomfort. She states their is increased swelling to the right calf. No shortness of breath no chest pain no increased redness no numbness or tingling distally no additional complaints. She took 2 Percocet tabs 5-325 at 2:30 today. Right Knee Pain Score (Numeric/FACES): 8 - Related Data Allergies Allergy/AdvReac Type Severity Reaction Status Date / Time tree nut Allergy Severe Anaphylactic Verified 12/08/17 16:03 Shock levofloxacin [From Levaquin] Allergy Rash Verified 12/08/17 16:03 metronidazole [From Flagyl] Allergy Rash Verified 12/08/17 16:03 Penicillins Allergy Hives Verified 12/08/17 16:03 meperidine HCl [From Demerol] AdvReac Nausea Verified 12/08/17 16:03 Home Meds: Home Meds Zolpidem [Ambien] 10 mg PO BEDTIME 09/03/14 [History] Venlafaxine [Effexor XR] 75 mg PO DAILY 11/13/15 [History] Docusate Sodium [Colace] 100 mg PO BID cap 12/02/17 [Rx] Famotidine [Pepcid] 20 mg PO Q12H #84 tablet 12/02/17 [Rx] Acetaminophen/oxyCODONE [Percocet 325-5 MG] 2 tab PO Q4H PRN #60 tablet [Rx] Cyclobenzaprine [Flexeril] 10 mg PO TID PRN #40 tablet 12/07/17 [Rx] LORazepam 1 tab PO Q4H PRN 12/07/17 [History] Rivaroxaban [Xarelto] 15 mg PO BID #42 tablet 12/07/17 [Rx] Rivaroxaban [Xarelto] 20 mg PO QAM #30 tablet 12/07/17 [Rx] Aspirin [Ecotrin] 325 mg PO DAILY 12/08/17 [History] Celecoxib [CeleBREX] 200 mg PO DAILY 12/08/17 [History] Past Medical History HEENT History: Reports: Allergic Rhinitis, Other (See Below) Other HEENT History: reports snoring Cardiovascular History: Reports: None Respiratory History: Reports: Asthma Gastrointestinal History: Reports: Cholelithiasis Genitourinary History: Reports: None [employer] History: Reports: , Other (See Below) Other OB/BYN History: breast reduction Musculoskeletal History: Reports: Arthritis, Other (See Below) Other Musculoskeletal History: current visit for right total knee Neurological History: Reports: Concussion Psychiatric History: Reports: Anxiety, Depression, Panic Attack Other Psychiatric History: Effexor 37.5 mg Endocrine/Metabolic History: Reports: None Hematologic History: Reports: Iron Deficiency Other Hematologic History: iron deficiency after Immunologic History: Reports: None Oncologic (Cancer) History: Reports: None Dermatologic History: Reports: Other (See Below) Other Dermatologic History: reports that she had a ingrown hair that got infected and she had to have surgery to remove and clean it out. She states that she was in the hospital for 6 days as she had a staph and strep infection - Infectious Disease History Infectious Disease History: Reports: C-Difficile, Chicken Pox - Past Surgical History Head Surgeries/Procedures: Reports: None HEENT Surgical History: Reports: Adenoidectomy, Tonsillectomy Cardiovascular Surgical History: Reports: None Respiratory Surgical History: Reports: None GI Surgical History: Reports: Appendectomy, Cholecystectomy Female Surgical History: Reports: Breast Reduction, Section, D&C, Hysterectomy Endocrine Surgical History: Reports: None Neurological Surgical History: Reports: None Musculoskeletal Surgical History: Reports: Joint Replacement, Knee Replacement Dermatological Surgical History: Reports: Skin Biopsy, Other (See Below) Social & Family History - Family History Family Medical History: Noncontributory - Tobacco Use Smoking Status *Q: Former Smoker Years of Tobacco use: 5 Packs/Tins Daily: 0.5 Used Tobacco, but Quit: Yes Month Tobacco Last Used: 1 Second Hand Smoke Exposure: No - Caffeine Use Caffeine Use: Reports: Coffee, Tea - Alcohol Use Days Per Week of Alcohol Use: 0 Number of Drinks Per Day: 0 Total Drinks Per Week: 0 - Recreational Drug Use Recreational Drug Use: No Drug Use in Last 12 Months: No Review of Systems - Review of Systems Review Of Systems: ROS reveals no pertinent complaints other than HPI. ED EXAM, GENERAL - Physical Exam Exam: See Below Exam Limited By: No Limitations General Appearance: Alert, WD/WN, Mild Distress Ears: Hearing Grossly Normal Nose: Normal Inspection Throat/Mouth: Normal Voice, No Airway Compromise Neck: Normal Inspection, Supple Respiratory/Chest: No Respiratory Distress, Lungs Clear, Normal Breath Sounds, No Accessory Muscle Use, Chest Non-Tender Cardiovascular: Normal Peripheral Pulses, Regular Rate, Rhythm, No Murmur Peripheral Pulses: 2+: Posterior Tibial (L), Posterior Tibial (R) (Doppler signals to the right posterior tibialis equal to the left.) Extremities: Other (Impregnated antibiotic dressing present to the right anterior knee along the surgical incision. Swelling noted to the right knee and calf with ecchymosis present since dependent. No tightness noted to the right calf. No increased swelling noted to the right calf in comparison to last night. No sensory deficits distally. With passive flexion and extension of the right toes and foot no worsening pain noted.) Neurological: Alert, Oriented, CN II-XII Intact, No Motor/Sensory Deficits Psychiatric: Normal Affect, Normal Mood Course - Vital Signs Last Recorded V/S: Last Vital Signs Temp 97.8 F 12/08/17 15:56 Pulse 102 H 12/08/17 15:56 Resp 20 12/08/17 15:56 BP 127/93 H 12/08/17 15:56 Pulse Ox 97 12/08/17 15:56 - Orders/Labs/Meds Orders: Active Orders 24 hr Category Date Time Status Peripheral IV Care [RC] . DIRECTED Care 12/08/17 16:33 Active Sodium Chloride 0.9% [Saline Flush] Med 12/08/17 16:32 Active 10 ml FLUSH ASDIRECTED PRN Peripheral IV Insertion Adult [OM.PC] Stat Oth 12/08/17 16:33 Ordered Medication Orders Sodium Chloride (Saline Flush) 10 ml FLUSH ASDIRECTED PRN PRN Reason: Keep Vein Open Last Admin: 12/08/17 16:58 Dose: 10 ml Meds: Medications Generic Name Dose Route Start Last Admin Trade Name Vladimir PRN Reason Stop Dose Admin Sodium Chloride 10 ml 12/08/17 16:32 12/08/17 16:58 Saline Flush FLUSH 10 ml ASDIRECTED PRN Administration Keep Vein Open Discontinued Medications Generic Name Dose Route Start Last Admin Trade Name Vladimir PRN Reason Stop Dose Admin Hydromorphone HCl 0.25 mg 12/08/17 16:33 12/08/17 16:56 Dilaudid IVPUSH 12/08/17 16:34 0.25 mg ONETIME ONE Administration - Re-Assessments/Exams Free Text/Narrative Re-Assessment/Exam: On examination I do not see increasing swelling noted to the calf. There is no tightness noted to the anterior posterior calf. Pain is present with palpation posteriorly and also posteriorly right knee. Pulses are intact distally with no changes. Strong Doppler signals present in comparison to the left. With passive flexion and extension of the toes there is no increasing pain further decreasing the possibility for compartment syndrome. I do believe the discomfort patient's currently experiencing is as a result of the surgery. 1630 I did discuss with Dr. Gallegos and he does not believe the clot is substantial. Does not believe transfer to [place] for further evaluation by interventional radiology required. Both the patient and have contacted his office twice today in regards to the above complaint. She has an appoint with Dr. Gallegos's PA in the morning for evaluation. Patient requests to be admitted to the hospital for pain control. 12/08/17 16:[address] Jha Requests Dr. Gallegos be primary for admission. Consult Dr. Jha for management for blood clot. IV started with Dilaudid 0.25 mg IVP. Reassessment, patient's pain is under control with the IV Dilaudid. Ice cooler system has been applied to the affected extremity. Patient does meet inpatient status. Dr. Gallegos has been notified. He will be in shortly to admit the patient. 12/08/17 18:35 Dr. Gallegos has been to the ED and evaluated the patient. He will admit the patient to the floor for pain management. 12/08/17 19:29 Admission order placed. Departure - Departure Time of Disposition: 18:45 Disposition: Admitted As Inpatient 66 Condition: Fair Clinical Impression: Status post total right knee replacement, Intractable pain DVT of popliteal vein Qualifiers: Chronicity: acute Laterality: right Qualified Code(s): I82.431 - Acute embolism and thrombosis of right popliteal vein - Discharge Information - My Orders Last 24 Hours: My Active Orders 12/08/17 16:32 Sodium Chloride 0.9% [Saline Flush] 10 ml FLUSH ASDIRECTED PRN 12/08/17 16:33 Peripheral IV Care [RC] . DIRECTED Peripheral IV Insertion Adult [OM.PC] Stat - Assessment/Plan Last 24 Hours: My Active Orders 12/08/17 16:32 Sodium Chloride 0.9% [Saline Flush] 10 ml FLUSH ASDIRECTED PRN 12/08/17 16:33 Peripheral IV Care [RC] . DIRECTED Peripheral IV Insertion Adult [OM.PC] Stat
[2017-12-08] MEDS ORDERED: Zolpidem 10 MG Tab PO SCH (21:00)
[2017-12-08] MEDS ORDERED: Docusate Sodium 100 MG Cap PO PRN (21:21)
[2017-12-08] MEDS ORDERED: diphenhydrAMINE 50 MG/ML SDV IVPUSH PRN (21:21)
[2017-12-08] MEDS ORDERED: Naloxone 0.4 MG/ML SDV IVPUSH PRN (21:21)
[2017-12-08] MEDS ORDERED: LORazepam 0.5 MG Tab PO PRN (21:26)
[2017-12-08] MEDS: Cyclobenzaprine 10 MG Tab PO PRN (22:08)
[2017-12-08] MEDS: Famotidine 20 MG Tab PO SCH (22:08)
[2017-12-09] MEDS ORDERED: Rivaroxaban 10 MG Tab PO SCH ×2 (05:00)
--- NOTE | 2017-12-09 08:02 | PCM.CONS ---
H&P History of Present Illness - General Date of Service: 12/09/17 Admit Problem/Dx: Admission Diagnosis/Problem Admission Diagnosis/Problem DVT, Deep venous thrombosis Source of Information: Patient, Other (record review) History Limitations: Reports: No Limitations - History of Present Illness Initial Comments - Free Text/Narative: Jazmine is a 42-year-old female seen this morning. She is status post right total knee arthroplasty with Dr. Gallegos on 12/01/17. She had usual unremarkable hospital course postoperatively. She was discharged home the day following surgery as usual standard procedure. She does admit that she laid around and was not active due to the increased surgical pain in her leg. Of note, she was on chronic narcotic therapy prior to surgery. She was diagnosed with lower extremity DVT 2 days ago and started on Xarelto twice daily. She was seen in the emergency department last evening for increased/intractable pain to the right leg. Dr. Gallegos was notified while she was in the ED. It is reported that at least 2 phone calls were made to Dr. Gallegos's office yesterday by the patient. She was subsequently admitted for pain control, Dr. Gallegos has consulted hospitalist service for assistance with medical management. Patient is Full Code status. Right Knee Pain Score (Numeric/FACES): 8 - Related Data Allergies/Adverse Reactions: Allergies Allergy/AdvReac Type Severity Reaction Status Date / Time tree nut Allergy Severe Anaphylactic Verified 12/08/17 22:55 Shock levofloxacin [From Levaquin] Allergy Rash Verified 12/08/17 22:55 metronidazole [From Flagyl] Allergy Rash Verified 12/08/17 22:55 Penicillins Allergy Hives Verified 12/08/17 22:55 meperidine HCl [From Demerol] AdvReac Nausea Verified 12/08/17 22:55 Home Medications: Home Meds Zolpidem [Ambien] 10 mg PO BEDTIME 09/03/14 [History] Venlafaxine [Effexor XR] 75 mg PO DAILY 11/13/15 [History] Docusate Sodium [Colace] 100 mg PO BID cap 12/02/17 [Rx] Famotidine [Pepcid] 20 mg PO Q12H #84 tablet 12/02/17 [Rx] Acetaminophen/oxyCODONE [Percocet 325-5 MG] 2 tab PO Q4H PRN #60 tablet [Rx] Cyclobenzaprine [Flexeril] 10 mg PO TID PRN #40 tablet 12/07/17 [Rx] LORazepam 1 tab PO Q4H PRN 12/07/17 [History] Rivaroxaban [Xarelto] 15 mg PO BID #42 tablet 12/07/17 [Rx] Aspirin [Ecotrin] 325 mg PO DAILY 12/08/17 [History] Celecoxib [CeleBREX] 200 mg PO DAILY 12/08/17 [History] Past Medical History HEENT History: Reports: Allergic Rhinitis, Other (See Below) Other HEENT History: reports snoring Cardiovascular History: Reports: None Respiratory History: Reports: Asthma Gastrointestinal History: Reports: Cholelithiasis Genitourinary History: Reports: None ADMIN ASSISTANT History: Reports: , Other (See Below) Other OB/BYN History: breast reduction Musculoskeletal History: Reports: Arthritis, Other (See Below) Other Musculoskeletal History: current visit for right total knee Neurological History: Reports: Concussion Psychiatric History: Reports: Anxiety, Depression, Panic Attack Other Psychiatric History: Effexor 37.5 mg Endocrine/Metabolic History: Reports: Obesity/BMI 30+ Hematologic History: Reports: Iron Deficiency Other Hematologic History: iron deficiency after Immunologic History: Reports: None Oncologic (Cancer) History: Reports: None Dermatologic History: Reports: Other (See Below) Other Dermatologic History: reports that she had a ingrown hair that got infected and she had to have surgery to remove and clean it out. She states that she was in the hospital for 6 days as she had a staph and strep infection - Infectious Disease History Infectious Disease History: Reports: C-Difficile, Chicken Pox - Past Surgical History Head Surgeries/Procedures: Reports: None HEENT Surgical History: Reports: Adenoidectomy, Tonsillectomy Cardiovascular Surgical History: Reports: None Respiratory Surgical History: Reports: None GI Surgical History: Reports: Appendectomy, Cholecystectomy Female Surgical History: Reports: Breast Reduction, Section, D&C, Hysterectomy Endocrine Surgical History: Reports: None Neurological Surgical History: Reports: None Musculoskeletal Surgical History: Reports: Joint Replacement, Knee Replacement Dermatological Surgical History: Reports: Skin Biopsy, Other (See Below) Social & Family History - Family History Family Medical History: Noncontributory - Tobacco Use Smoking Status *Q: Former Smoker Years of Tobacco use: 5 Packs/Tins Daily: 0.5 Used Tobacco, but Quit: Yes Month Tobacco Last Used: november 2017 Tobacco Use Comment: nicotine patch left arm noted. Second Hand Smoke Exposure: No - Caffeine Use Caffeine Use: Reports: Coffee, Tea - Alcohol Use Days Per Week of Alcohol Use: 0 Number of Drinks Per Day: 0 Total Drinks Per Week: 0 - Recreational Drug Use Recreational Drug Use: No Drug Use in Last 12 Months: No H&P Review of Systems - Review of Systems: Review Of Systems: See Below General: Reports: Malaise, Weakness, Fatigue. Denies: Fever, Chills HEENT: Reports: No Symptoms Pulmonary: Reports: No Symptoms. Denies: Shortness of Breath, Wheezing, Cough Cardiovascular: Reports: No Symptoms. Denies: Chest Pain, Palpitations, Dyspnea on Exertion Gastrointestinal: Reports: No Symptoms. Denies: Abdominal Pain, Nausea Genitourinary: Reports: No Symptoms Musculoskeletal: Reports: Leg Pain Skin: Reports: No Symptoms, Other (Incision without concerns) Neurological: Reports: No Symptoms Exam - Exam Exam: See Below - Vital Signs Vital Signs: Last Vital Signs Temp 98.1 F 12/09/17 03:56 Pulse 68 12/09/17 03:56 Resp 15 12/09/17 03:56 BP 111/71 12/09/17 03:56 Pulse Ox 93 L 12/09/17 03:56 Weight: 211 lb 2 oz - Exam Quality Assessment: DVT Prophylaxis General: Alert, Oriented, Cooperative HEENT: Conjunctiva Clear, EOMI, Hearing Intact, Pupils Equal, PERRLA Neck: Supple Lungs: Clear to Auscultation, Normal Respiratory Effort, Decreased Breath Sounds (Bases bilaterally) Cardiovascular: Regular Rate, Regular Rhythm GI/Abdominal Exam: Normal Bowel Sounds, Soft, Non-Tender (Female) Exam: Deferred Rectal (Female) Exam: Deferred Extremities: Other (Teds bilat; dressing CDI to rt knee. No obvious swelling or rednes to rt leg, calf or thigh. With palpation no worsening of pain to calf or inner rt thigh. ) Peripheral Pulses: 2+: Dorsalis Pedis (L), Dorsalis Pedis (R) Skin: Warm, Dry, Incision (Healing nicely without signs or symptoms of infection. Dressing is clean dry and intact without surrounding erythema) Neuro Extensive - Mental Status: Alert, Oriented x3, Normal Mood/Affect, Normal Cognition, Memory Intact Neuro Extensive - Motor, Sensory, Reflexes: CN II-XII Intact Psychiatric: Alert, Normal Affect, Normal Mood - Patient Data Result Diagrams: 12/09/17 09:50 12/09/17 09:50 Consult PN Assessment/Plan POD#: 8 Procedures: Procedures AIRWAY INHALATION TREATMENT (04/07/15) BLOOD TYPING SEROLOGIC ABO (04/07/15) BLOOD TYPING SEROLOGIC RH(D) (04/07/15) COMPLETE CBC AUTOMATED (04/07/15) COMPLETE CBC W/AUTO DIFF WBC (04/07/15) CT HEAD/BRAIN W/O DYE (11/13/15) CULTURE AEROBIC IDENTIFY (10/05/14) EMERGENCY DEPT VISIT (11/13/15) EMERGENCY DEPT VISIT (04/21/15) EMERGENCY DEPT VISIT (10/05/14) EVALUATE PT USE OF INHALER (04/07/15) LAPARO-VAG HYST INCL T/O (04/07/15) MEASURE BLOOD OXYGEN LEVEL (04/07/15) METABOLIC PANEL TOTAL CA (04/07/15) MICROBE SUSCEPTIBLE NOHEMY (10/05/14) MRI JNT OF LWR EXTRE W/O DYE (04/18/17) OFFICE/OUTPATIENT VISIT EST (09/08/14) RBC ANTIBODY SCREEN (04/07/15) ROUTINE VENIPUNCTURE (04/07/15) THER/PROPH/DIAG INJ IV PUSH (11/13/15) THER/PROPH/DIAG IV INF INIT (04/07/15) TISSUE EXAM BY PATHOLOGIST (04/07/15) TX/PRO/DX INJ NEW DRUG ADDON (11/13/15) TX/PROPH/DG ADDL SEQ IV INF (04/07/15) URINALYSIS AUTO W/SCOPE (10/05/14) URINE BACTERIA CULTURE (10/05/14) URINE TEST (04/07/15) (1) S/P total knee arthroplasty SNOMED Code(s): 9257186176082, 3030393398515 Code(s): Z96.659 - PRESENCE OF UNSPECIFIED ARTIFICIAL KNEE JOINT Priority: High Current Visit: No Qualifiers: Laterality: right Qualified Code(s): Z96.651 - Presence of right artificial knee joint (2) DVT of popliteal vein SNOMED Code(s): 366118951 Code(s): I82.439 - ACUTE EMBOLISM AND THROMBOSIS OF UNSPECIFIED POPLITEAL VEIN Priority: High Current Visit: Yes Qualifiers: Chronicity: acute Laterality: right Qualified Code(s): I82.431 - Acute embolism and thrombosis of right popliteal vein (3) Intractable pain SNOMED Code(s): 76620359 Code(s): R52 - PAIN, UNSPECIFIED Priority: High Current Visit: Yes Problem List Initiated/Reviewed/Updated: Yes My Orders Last 24 Hours: My Active Orders 12/09/17 07:57 BASIC METABOLIC PANEL,BMP [CHEM] Urgent CBC WITH AUTO DIFF [HEME] Urgent Plan: Impression/plan: Acute right lower extremity DVT, diagnosed 2 days ago with intractable pain requiring admission -On exam swelling is minimal to none. -Patient was started on zarelto 15 mg twice daily 2 days ago, continue this. -Continue physical therapy -Pain management, she did get 1 dose of Dilaudid in the ER, she is on Nucynta - long-acting morphine. Nursing reports this morning pain is quite high. I did order 1 dose of IV Tylenol this morning -RT/IS Status post right total knee arthroplasty with Dr. Gallegos done 8 days ago on . -Usual postoperative management per Dr. Gallegos's discretion -Physical therapy Chronic opioid use, question of dependence/addiction- she was on chronic narcotic medications prior to surgery, likely low threshold for pain Other: A.m. labs ordered this morning Vital signs are stable on room air Case management if needed for any discharge concerns Likely discharge home today No concerns from hospitalist team for discharge home today, if review of morning labs are all within normal limits or acceptable----labs all acceptable. Pain control per primary team, cont with xarelto and f/up with PCP or Ortho for DVT f/up. Patient is full CODE STATUS Requesting Provider: El Date Consult Requested: 12/08/17 Reason for Consult: Medical management Patient History Reviewed: Yes Time Spent (in minutes): 45
[2017-12-09] MEDS: Cyclobenzaprine 10 MG Tab PO PRN (08:53)
[2017-12-09] MEDS: Famotidine 20 MG Tab PO SCH (08:53)
[2017-12-09] MEDS ORDERED: VENLAFAXINE 75 MG PO SCH (09:00)
[2017-12-09] MEDS ORDERED: Celecoxib 100 MG Cap PO SCH (09:00)
[2017-12-09 11:49] VITALS: BP 126/72
--- NOTE | 2017-12-09 16:36 | PCM.SURGPN ---
- General Info Date of Service: 12/09/17 POD#: 1 Functional Status: Reports: Pain Controlled, Tolerating Diet, Ambulating, Urinating - Review of Systems Musculoskeletal: Reports: Other (The pt reports her pain is under better control with use of Nucyta. She stated she did well with P.T. today.) - Patient Data Vitals - Most Recent: Last Vital Signs Temp 97.9 F 12/09/17 11:34 Pulse 70 12/09/17 11:34 Resp 16 12/09/17 11:34 BP 126/72 12/09/17 11:34 Pulse Ox 97 12/09/17 11:34 Weight - Most Recent: 211 lb 2 oz I&O - Last 24 Hours: Intake & Output 12/09/17 12/09/17 12/09/17 06:59 14:59 22:59 Intake Total 600 180 Output Total 1600 Balance -1000 180 Lab Results Last 24 Hrs: Laboratory Results - last 24 hr 12/09/17 12/09/17 Range/Units 09:50 09:50 WBC 11.47 H (3.98-10.04) K/mm3 RBC 3.62 L (3.98-5.22) M/mm3 Hgb 11.0 L (11.2-15.7) gm/L Hct 32.2 L (34.1-44.9) % MCV 89.0 (79.4-94.8) fl MCH 30.4 (25.6-32.2) pg MCHC 34.2 (32.2-35.5) g/dl RDW Std Deviation 40.5 (36.4-46.3) fL Plt Count 225 (182-369) K/mm3 MPV 9.8 (9.4-12.3) fl Neut % (Auto) 66.4 (34.0-71.1) % Lymph % (Auto) 21.4 (19.3-51.7) % [place] % (Auto) 8.1 (4.7-12.5) % Eos % (Auto) 3.4 (0.7-5.8) Baso % (Auto) 0.4 (0.1-1.2) % Neut # (Auto) 7.60 H (1.56-6.13) K/mm3 Lymph # (Auto) 2.46 (1.18-3.74) K/mm3 [place] # (Auto) 0.93 H (0.24-0.36) K/mm3 Eos # (Auto) 0.39 H (0.04-0.36) K/mm3 Baso # (Auto) 0.05 (0.01-0.08) K/mm3 Manual Slide Review Abnormal smear Sodium 137 (136-145) mEq/L Potassium 3.7 (3.5-5.1) mEq/L Chloride 103 (98-107) mEq/L Carbon Dioxide 26 (21-32) mEq/L Anion Gap 11.7 (5-15) BUN 9 (7-18) mg/dL Creatinine 0.8 (0.55-1.02) mg/dL Est Cr Clr Drug Dosing 89.99 mL/min Estimated GFR (MDRD) > 60 (>60) mL/min BUN/Creatinine Ratio 11.3 L (14-18) Glucose 111 H (74-106) mg/dL Calcium 8.7 (8.5-10.1) mg/dL Med Orders - Current: Current Medications Discontinued Medications Celecoxib (Celebrex) 200 mg PO DAILY [facility] Last Admin: 12/09/17 08:53 Dose: 200 mg Cyclobenzaprine HCl (Flexeril) 10 mg PO TID PRN PRN Reason: Muscle Spasm Last Admin: 12/09/17 08:53 Dose: 10 mg Diphenhydramine HCl (Benadryl) 25 mg IVPUSH Q4H PRN PRN Reason: Itching Docusate Sodium (Colace) 100 mg PO BID PRN PRN Reason: Constipation Last Admin: 12/08/17 22:08 Dose: 100 mg Famotidine (Pepcid) 20 mg PO Q12H [facility] Last Admin: 12/09/17 08:53 Dose: 20 mg Hydromorphone HCl (Dilaudid) 0.25 mg IVPUSH ONETIME ONE Stop: 12/08/17 16:34 Last Admin: 12/08/17 16:56 Dose: 0.25 mg Acetaminophen (Ofirmev) 100 mls @ 400 mls/hr IV NOW ONE Stop: 12/09/17 07:05 Last Admin: 12/09/17 07:28 Dose: 400 mls/hr Lorazepam (Ativan) 0.5 mg PO Q4H PRN PRN Reason: Anxiety Naloxone HCl (Narcan) 0.1 mg IVPUSH Q5M PRN PRN Reason: oversedation Stop: 12/09/17 21:22 Rivaroxaban (Xarelto) 15 mg PO BID [facility] Last Admin: 12/09/17 07:05 Dose: Not Given Rivaroxaban (Xarelto) 15 mg PO BID [facility] Last Admin: 12/09/17 05:16 Dose: 15 mg Sodium Chloride (Saline Flush) 10 ml FLUSH ASDIRECTED PRN PRN Reason: Keep Vein Open Last Admin: 12/08/17 16:58 Dose: 10 ml Tapentadol (Nucynta) 50 mg PO Q4H PRN PRN Reason: Pain Last Admin: 12/09/17 12:20 Dose: 50 mg Venlafaxine HCl (Effexor Xr) 75 mg PO DAILY [facility] Last Admin: 12/09/17 08:53 Dose: 75 mg Zolpidem Tartrate (Ambien) 10 mg PO BEDTIME [facility] Last Admin: 12/08/17 22:08 Dose: 10 mg - Exam Wound/Incisions: Dressing Dry and Intact General: Alert, Cooperative, No Acute Distress Lungs: Normal Respiratory Effort Extremities: Other (Mod swelling right knee. Arielle's negative for RLE at time of evaluation. NVS intact at time of eval.) - Problem List Review Problem List Initiated/Reviewed/Updated: Yes - My Orders Last 24 Hours: Active Orders 24 hr Category Date Time Status Admission Status [Patient Status] [ADT] Routine ADT 12/08/17 19:27 Active Ambulate [RC] PER UNIT ROUTINE Care 12/08/17 21:21 Active Dressing Change [Wound Care] [RC] DAILY Care 12/09/17 13:13 Active May Shower [RC] ASDIRECTED Care 12/08/17 21:21 Active Notify Provider Consults [RC] ASDIRECTED Care 12/08/17 21:24 Active Oxygen Therapy [RC] PRN Care 12/08/17 21:21 Active RT Incentive Spirometry [RC] Q2HWA Care 12/08/17 21:22 Active Ready for Discharge [RC] PER UNIT ROUTINE Care 12/09/17 13:12 Active Vital Signs [RC] 03,09,15,21 Care 12/08/17 21:21 Active Consult to Physician [CONS] Routine Cons 12/08/17 21:21 Active PT Evaluation and Treatment [CONS] Routine Cons 12/08/17 21:21 Active Ice Therapy [OM.PC] Per Unit Routine Oth 12/08/17 21:22 Ordered Weight bearing status [OM.PC] Routine Oth 12/08/17 21:21 Ordered Resuscitation Status Routine Resus Stat 12/08/17 21:21 Ordered - Assessment Assessment (Free Text/Narrative):: POD#8 - right TKA - Plan Plan (Free Text/Narrative):: 1. Pt with small popliteal venous clot and will continue with Xarelto daily as per ED and Hospitalist instruction. 2. Discussed frequent mobility. 3. Outpatient P.T. 4. Nucynta for pain management. The pt's case was discussed with Dr. Gallegos. Dr. Gallegos evaluated the pt in the ED yesterday.
--- NOTE | 2017-12-09 16:40 | PCM.DCSUM1 ---
Discharge Summary - Hospital Course Brief History: Jazmine is a 42 yo female who underwent right TKA with Dr. Gallegos on 12-01-2017. The procedure was completed under spinal anesthesia with sedation. The pt was admitted to the Medical-Surgical Unit and was discharged on POD#1. The pt was evaluated by the ED twice on POD#7 for continued pain. RLE venous doppler was completed and the pt was dx with a small popliteal venous clot and Xarelto was initiated. The pt continued to note discomfort at the RLE and was admitted to Hospital on 12-08-2017 for pain management. The pt's pain was controlled with use of Nucynta. The pt participated in P.T. Medical management was provided by the Hospitalist service. On POD#8, the pt was deemed appropriate for discharge to home. - Discharge Data Discharge Date: 12/09/17 Discharge Disposition: Home, Self-Care 01 Condition: Good - Patient Summary/Data Consults: Consultations 12/08/17 21:21 Consult to Physician [CONS] Routine PT Evaluation and Treatment [CONS] Routine - Patient Instructions Diet: Usual Diet as Tolerated Activity: Apply Ice, As Tolerated, Elevate Extremity, Full Weight Bearing Driving: Do Not Drive Showering/Bathing: May Shower Wound/Incision Care: Keep Operative Site/Wound Site Clean and Dry, Do NOT Change Dressing Notify Provider of: Fever, Increased Pain, Swelling and Redness, Drainage, Nausea and/or Vomiting Other/Special Instructions: Please try to be as active as able. Please get up and moving around every hour while awake - for a short walk. Schedule for P.T. Use the Xarelto daily as directed. You may use the new pain medication as needed. Try to use one tablet every 4 hours as needed. If you pain isn't controlled, please call the Clinic. DO NOT use Percocet or any other medications for pain while using the Nucynta. Please call the Clinic with questions or concerns - [phone]. - Discharge Plan Prescriptions/Med Rec: Tapentadol [Nucynta] 50 - 100 mg PO Q4H PRN #40 tablet PRN Reason: Pain Home Medications: Home Meds Zolpidem [Ambien] 10 mg PO BEDTIME 09/03/14 [History] Venlafaxine [Effexor XR] 75 mg PO DAILY 11/13/15 [History] LORazepam 0.5 mg PO Q4H PRN 12/07/17 [History] Rivaroxaban [Xarelto] 15 mg PO BID #42 tablet 12/07/17 [Rx] Celecoxib [CeleBREX] 200 mg PO DAILY 12/08/17 [History] Cyclobenzaprine [Flexeril] 10 mg PO TID PRN tablet 12/09/17 [Rx] Docusate Sodium [Colace] 100 mg PO BID PRN cap 12/09/17 [Rx] Famotidine [Pepcid] 20 mg PO Q12H tablet 12/09/17 [Rx] Tapentadol [Nucynta] 50 - 100 mg PO Q4H PRN #40 tablet 12/09/17 [Rx] Patient Handouts: Deep Vein Thrombosis Forms: ED Department Discharge Referrals: Vandana Mckeon NP [Primary Care Provider] - 12/16/17 9:30 am Nataliya Vale PA-C [Physician Oceanology Teacher] - 12/16/17 3:15 pm (Please keep previous follow-up appointment with Nataliya Vale PA-C on Saturday, December 16, 2017 at 3:15pm.) - Patient Data Vitals - Most Recent: Last Vital Signs Temp 97.9 F 12/09/17 11:34 Pulse 70 12/09/17 11:34 Resp 16 12/09/17 11:34 BP 126/72 12/09/17 11:34 Pulse Ox 97 12/09/17 11:34 Weight - Most Recent: 211 lb 2 oz I&O - Last 24 hours: Intake & Output 12/09/17 12/09/17 12/09/17 06:59 14:59 22:59 Intake Total 600 180 Output Total 1600 Balance -1000 180 Lab Results - Last 24 hrs: Laboratory Results - last 24 hr 12/09/17 12/09/17 Range/Units 09:50 09:50 WBC 11.47 H (3.98-10.04) K/mm3 RBC 3.62 L (3.98-5.22) M/mm3 Hgb 11.0 L (11.2-15.7) gm/L Hct 32.2 L (34.1-44.9) % MCV 89.0 (79.4-94.8) fl MCH 30.4 (25.6-32.2) pg MCHC 34.2 (32.2-35.5) g/dl RDW Std Deviation 40.5 (36.4-46.3) fL Plt Count 225 (182-369) K/mm3 MPV 9.8 (9.4-12.3) fl Neut % (Auto) 66.4 (34.0-71.1) % Lymph % (Auto) 21.4 (19.3-51.7) % [place] % (Auto) 8.1 (4.7-12.5) % Eos % (Auto) 3.4 (0.7-5.8) Baso % (Auto) 0.4 (0.1-1.2) % Neut # (Auto) 7.60 H (1.56-6.13) K/mm3 Lymph # (Auto) 2.46 (1.18-3.74) K/mm3 [place] # (Auto) 0.93 H (0.24-0.36) K/mm3 Eos # (Auto) 0.39 H (0.04-0.36) K/mm3 Baso # (Auto) 0.05 (0.01-0.08) K/mm3 Manual Slide Review Abnormal smear Sodium 137 (136-145) mEq/L Potassium 3.7 (3.5-5.1) mEq/L Chloride 103 (98-107) mEq/L Carbon Dioxide 26 (21-32) mEq/L Anion Gap 11.7 (5-15) BUN 9 (7-18) mg/dL Creatinine 0.8 (0.55-1.02) mg/dL Est Cr Clr Drug Dosing 89.99 mL/min Estimated GFR (MDRD) > 60 (>60) mL/min BUN/Creatinine Ratio 11.3 L (14-18) Glucose 111 H (74-106) mg/dL Calcium 8.7 (8.5-10.1) mg/dL Med Orders - Current: Current Medications Discontinued Medications Celecoxib (Celebrex) 200 mg PO DAILY [facility] Last Admin: 12/09/17 08:53 Dose: 200 mg Cyclobenzaprine HCl (Flexeril) 10 mg PO TID PRN PRN Reason: Muscle Spasm Last Admin: 12/09/17 08:53 Dose: 10 mg Diphenhydramine HCl (Benadryl) 25 mg IVPUSH Q4H PRN PRN Reason: Itching Docusate Sodium (Colace) 100 mg PO BID PRN PRN Reason: Constipation Last Admin: 12/08/17 22:08 Dose: 100 mg Famotidine (Pepcid) 20 mg PO Q12H [facility] Last Admin: 12/09/17 08:53 Dose: 20 mg Hydromorphone HCl (Dilaudid) 0.25 mg IVPUSH ONETIME ONE Stop: 12/08/17 16:34 Last Admin: 12/08/17 16:56 Dose: 0.25 mg Acetaminophen (Ofirmev) 100 mls @ 400 mls/hr IV NOW ONE Stop: 12/09/17 07:05 Last Admin: 12/09/17 07:28 Dose: 400 mls/hr Lorazepam (Ativan) 0.5 mg PO Q4H PRN PRN Reason: Anxiety Naloxone HCl (Narcan) 0.1 mg IVPUSH Q5M PRN PRN Reason: oversedation Stop: 12/09/17 21:22 Rivaroxaban (Xarelto) 15 mg PO BID [facility] Last Admin: 12/09/17 07:05 Dose: Not Given Rivaroxaban (Xarelto) 15 mg PO BID [facility] Last Admin: 12/09/17 05:16 Dose: 15 mg Sodium Chloride (Saline Flush) 10 ml FLUSH ASDIRECTED PRN PRN Reason: Keep Vein Open Last Admin: 12/08/17 16:58 Dose: 10 ml Tapentadol (Nucynta) 50 mg PO Q4H PRN PRN Reason: Pain Last Admin: 12/09/17 12:20 Dose: 50 mg Venlafaxine HCl (Effexor Xr) 75 mg PO DAILY [facility] Last Admin: 12/09/17 08:53 Dose: 75 mg Zolpidem Tartrate (Ambien) 10 mg PO BEDTIME [facility] Last Admin: 12/08/17 22:08 Dose: 10 mg *Q Meaningful Use (DIS) - VTE *Q VTE Criteria *Q: - Stroke *Q Stroke Criteria *Q: - AMI *Q AMI Criteria *Q:
--- NOTE | 2017-12-12 09:49 | PCM.HP ---
<Nataliya Vale J - Last Filed: 12/12/17 09:50> H&P History of Present Illness - General Date of Service: 12/08/17 Admit Problem/Dx: Admission Diagnosis/Problem Admission Diagnosis/Problem DVT, Deep venous thrombosis Source of Information: Patient - History of Present Illness Initial Comments - Free Text/Narative: Jazmine is a 42 yo female who underwent right TKA with Dr. Gallegos on 12-01-2017. The procedure was completed under spinal anesthesia with sedation. The pt was admitted to the Medical-Surgical Unit and was discharged on POD#1. The pt was evaluated by the ED twice on POD#7 for continued pain. RLE venous doppler was completed and the pt was dx with a small popliteal venous clot and Xarelto was initiated. The pt continued to note discomfort at the RLE and decision was made that pt would be admitted to Hospital on 12-08-2017 for pain management. Right Knee Pain Score (Numeric/FACES): 8 - Related Data Allergies/Adverse Reactions: Allergies Allergy/AdvReac Type Severity Reaction Status Date / Time tree nut Allergy Severe Anaphylactic Verified 12/08/17 22:55 Shock levofloxacin [From Levaquin] Allergy Rash Verified 12/08/17 22:55 metronidazole [From Flagyl] Allergy Rash Verified 12/08/17 22:55 Penicillins Allergy Hives Verified 12/08/17 22:55 meperidine HCl [From Demerol] AdvReac Nausea Verified 12/08/17 22:55 Home Medications: Home Meds Zolpidem [Ambien] 10 mg PO BEDTIME 09/03/14 [History] Venlafaxine [Effexor XR] 75 mg PO DAILY 11/13/15 [History] LORazepam 0.5 mg PO Q4H PRN 12/07/17 [History] Rivaroxaban [Xarelto] 15 mg PO BID #42 tablet 12/07/17 [Rx] Celecoxib [CeleBREX] 200 mg PO DAILY 12/08/17 [History] Cyclobenzaprine [Flexeril] 10 mg PO TID PRN tablet 12/09/17 [Rx] Docusate Sodium [Colace] 100 mg PO BID PRN cap 12/09/17 [Rx] Famotidine [Pepcid] 20 mg PO Q12H tablet 12/09/17 [Rx] Tapentadol [Nucynta] 50 - 100 mg PO Q4H PRN #40 tablet 12/09/17 [Rx] Past Medical History HEENT History: Reports: Allergic Rhinitis, Other (See Below) Other HEENT History: reports snoring Cardiovascular History: Reports: None Respiratory History: Reports: Asthma Gastrointestinal History: Reports: Cholelithiasis Genitourinary History: Reports: None 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: , Other (See Below) Other OB/BYN History: breast reduction Musculoskeletal History: Reports: Arthritis, Other (See Below) Other Musculoskeletal History: current visit for right total knee Neurological History: Reports: Concussion Psychiatric History: Reports: Anxiety, Depression, Panic Attack Other Psychiatric History: Effexor 37.5 mg Endocrine/Metabolic History: Reports: Obesity/BMI 30+ Hematologic History: Reports: Iron Deficiency Other Hematologic History: iron deficiency after Immunologic History: Reports: None Oncologic (Cancer) History: Reports: None Dermatologic History: Reports: Other (See Below) Other Dermatologic History: reports that she had a ingrown hair that got infected and she had to have surgery to remove and clean it out. She states that she was in the hospital for 6 days as she had a staph and strep infection - Infectious Disease History Infectious Disease History: Reports: C-Difficile, Chicken Pox - Past Surgical History Head Surgeries/Procedures: Reports: None HEENT Surgical History: Reports: Adenoidectomy, Tonsillectomy Cardiovascular Surgical History: Reports: None Respiratory Surgical History: Reports: None GI Surgical History: Reports: Appendectomy, Cholecystectomy Female Surgical History: Reports: Breast Reduction, Section, D&C, Hysterectomy Endocrine Surgical History: Reports: None Neurological Surgical History: Reports: None Musculoskeletal Surgical History: Reports: Joint Replacement, Knee Replacement Dermatological Surgical History: Reports: Skin Biopsy, Other (See Below) Social & Family History - Family History Family Medical History: Noncontributory - Tobacco Use Smoking Status *Q: Former Smoker Years of Tobacco use: 5 Packs/Tins Daily: 0.5 Used Tobacco, but Quit: Yes Month Tobacco Last Used: november 2017 Tobacco Use Comment: nicotine patch left arm noted. Second Hand Smoke Exposure: No - Caffeine Use Caffeine Use: Reports: Coffee, Tea - Alcohol Use Days Per Week of Alcohol Use: 0 Number of Drinks Per Day: 0 Total Drinks Per Week: 0 - Recreational Drug Use Recreational Drug Use: No Drug Use in Last 12 Months: No Exam - Vital Signs Vital Signs: Last Vital Signs Temp 97.9 F 12/09/17 11:34 Pulse 70 12/09/17 11:34 Resp 16 12/09/17 11:34 BP 126/72 12/09/17 11:34 Pulse Ox 97 12/09/17 11:34 Weight: 95.765 kg - Patient Data Result Diagrams: 12/09/17 09:50 12/09/17 09:50 *Q Meaningful Use (ADM) - VTE *Q VTE Criteria *Q: - Stroke *Q Stroke Criteria *Q: - AMI *Q AMI Criteria *Q: Problem List Initiated/Reviewed/Updated: Yes Assessment/Plan Comment:: ASSESSMENT: 1. POD#7 s/p right TKA 2. small popliteal venous clot 3. Intractable pain PLAN: The pt will be admitted to Hospital for pain management, P.T. and further monitoring. Xarelto has been initiated and pt will continue with this medication. SCDs and TEDs will also be ordered. Nucynta will be ordered. The Hospitalist service will be consulted for medical management. The pt verbalized understanding of what was discussed and was agreeable to the plan of care. <Justin Gallegos O - Last Filed: 12/12/17 13:21> H&P History of Present Illness - General Admit Problem/Dx: Admission Diagnosis/Problem Admission Diagnosis/Problem DVT, Deep venous thrombosis Source of Information: Patient H&P Review of Systems - Review of Systems: Review Of Systems: ROS reveals no pertinent complaints other than HPI. Exam - Exam Exam: See Below - Vital Signs Vital Signs: Last Vital Signs Temp 36.6 C 12/09/17 11:34 Pulse 70 12/09/17 11:34 Resp 16 12/09/17 11:34 BP 126/72 12/09/17 11:34 Pulse Ox 97 12/09/17 11:34 - Patient Data Result Diagrams: 12/09/17 09:50 12/09/17 09:50 *Q Meaningful Use (ADM) - VTE *Q VTE Criteria *Q: - Stroke *Q Stroke Criteria *Q: - AMI *Q AMI Criteria *Q:
== END 2017-12-09 14:30 | disposition home or self-care (01) | DRG 556 ==
LOC: JD.ED 15:40 → JD.MS 18:42
PROVIDERS: ADMIT Orthopaedic Surgery; ATTEND Orthopaedic Surgery
DX: M79.604 Pain in right leg (principal); I82.431 Acute embolism and thrombosis of right popliteal vein; Z96.651 Presence of right artificial knee joint; M19.90 Unspecified osteoarthritis, unspecified site; F32.9 Major depressive disorder, single episode, unspecified; F41.9 Anxiety disorder, unspecified; J30.9 Allergic rhinitis, unspecified; E61.1 Iron deficiency; Z87.891 Personal history of nicotine dependence; Z79.01 Long term (current) use of anticoagulants; Z79.82 Long term (current) use of aspirin; Z79.899 Other long term (current) drug therapy; Z88.6 Allergy status to analgesic agent; Z88.1 Allergy status to other antibiotic agents; Z91.02 Food additives allergy status
CPT/HCPCS: 36415; 80048; 85025; 96374; 97110-GP; 97116-GP; 97162-GP; 99284-25; 99285; A9270-GY; J1170; J7050

== ENCOUNTER 2017-12-31 06:07 | Emergency (ER) | payer OTHER ==
[2017-12-31 06:26] VITALS: BP 135/87
--- NOTE | 2017-12-31 06:56 | EDM.PDOC ---
ED HPI GENERAL MEDICAL PROBLEM - General Chief Complaint: Lower Extremity Injury/Pain Stated Complaint: RT LEG SWELLING AND HOT TO TOUCH Time Seen by Provider: 12/31/17 06:56 Source of Information: Reports: Patient History Limitations: Reports: No Limitations - History of Present Illness INITIAL COMMENTS - FREE TEXT/NARRATIVE: 42-year-old female presents to the ED with increased erythema swelling around her total knee replacement that was done a month ago. She has no systemic signs of illness such as fever chills nausea or vomiting. Does have increased pain around the right knee. Note patient's history is been copied kidney by deep venous thrombosis in the left leg and she is on Xarelto 20 mg once daily. Calf pain and swelling has dissipated but erythema around the knee is increasing particularly the weekend and started to spread up the anterior thigh. Onset: Gradual Onset Date: 12/29/17 Duration: Hour(s):, Getting Worse Location: Reports: Lower Extremity, Right (Around the knee. Total knee replacement was done a month ago.) Quality: Reports: Ache, Burning Severity: Moderate Improves with: Reports: None Worsens with: Reports: None Associated Symptoms: Reports: No Other Symptoms Treatments CLINICAL PHARMACOLOGIST: Reports: NSAIDS, Other (see below) Right Lower Leg Pain Score (Numeric/FACES): 7 - Related Data Allergies Allergy/AdvReac Type Severity Reaction Status Date / Time tree nut Allergy Severe Anaphylactic Verified 12/08/17 22:55 Shock levofloxacin [From Levaquin] Allergy Rash Verified 12/08/17 22:55 metronidazole [From Flagyl] Allergy Rash Verified 12/08/17 22:55 Penicillins Allergy Hives Verified 12/08/17 22:55 meperidine HCl [From Demerol] AdvReac Nausea Verified 12/08/17 22:55 Home Meds: Home Meds Zolpidem [Ambien] 10 mg PO BEDTIME 09/03/14 [History] Venlafaxine [Effexor XR] 75 mg PO DAILY 11/13/15 [History] LORazepam 0.5 mg PO Q4H PRN 12/07/17 [History] Cyclobenzaprine [Flexeril] 10 mg PO TID PRN tablet 12/09/17 [Rx] Famotidine [Pepcid] 20 mg PO Q12H tablet 12/09/17 [Rx] Acetaminophen/oxyCODONE [Percocet 325-5 MG] 1 - 2 each PO Q4H PRN #20 tab [Rx] Doxycycline [Vibramycin] 100 mg PO BID #20 cap 12/31/17 [Rx] Hydrocodone/Acetaminophen [Hydrocodon-Acetaminophen 5-325] 1 - 2 tab PO Q4H PRN 12/31/17 [History] Rivaroxaban [Xarelto] 20 mg PO DAILY 12/31/17 [History] oxyCODONE HCl/Acetaminophen [Percocet 5-325 mg Tablet] 1 - 2 each PO Q4H PRN # 20 tablet 12/31/17 [Rx] Past Medical History HEENT History: Reports: Allergic Rhinitis, Other (See Below) Other HEENT History: reports snoring Cardiovascular History: Reports: None, Blood Clots/VTE/DVT Respiratory History: Reports: Asthma Gastrointestinal History: Reports: Cholelithiasis Genitourinary History: Reports: None 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: , Other (See Below) Other OB/BYN History: breast reduction Musculoskeletal History: Reports: Arthritis, Other (See Below) Other Musculoskeletal History: current visit for right total knee Neurological History: Reports: Concussion Psychiatric History: Reports: Anxiety, Depression, Panic Attack Other Psychiatric History: Effexor 37.5 mg Endocrine/Metabolic History: Reports: Obesity/BMI 30+ Hematologic History: Reports: Iron Deficiency Other Hematologic History: iron deficiency after Immunologic History: Reports: None Oncologic (Cancer) History: Reports: None Dermatologic History: Reports: Other (See Below) Other Dermatologic History: reports that she had a ingrown hair that got infected and she had to have surgery to remove and clean it out. She states that she was in the hospital for 6 days as she had a staph and strep infection - Infectious Disease History Infectious Disease History: Reports: C-Difficile, Chicken Pox - Past Surgical History Head Surgeries/Procedures: Reports: None HEENT Surgical History: Reports: Adenoidectomy, Tonsillectomy Cardiovascular Surgical History: Reports: None Respiratory Surgical History: Reports: None GI Surgical History: Reports: Appendectomy, Cholecystectomy Female Surgical History: Reports: Breast Reduction, Section, D&C, Hysterectomy Endocrine Surgical History: Reports: None Neurological Surgical History: Reports: None Musculoskeletal Surgical History: Reports: Joint Replacement, Knee Replacement Dermatological Surgical History: Reports: Skin Biopsy Social & Family History - Family History Family Medical History: Noncontributory - Tobacco Use Smoking Status *Q: Never Smoker Years of Tobacco use: 5 Packs/Tins Daily: 0.5 Used Tobacco, but Quit: Yes Month Tobacco Last Used: november 2017 Second Hand Smoke Exposure: No - Caffeine Use Caffeine Use: Reports: Coffee, Tea - Alcohol Use Days Per Week of Alcohol Use: 0 Number of Drinks Per Day: 0 Total Drinks Per Week: 0 - Recreational Drug Use Recreational Drug Use: No Drug Use in Last 12 Months: No - Living Situation & Occupation Living situation: Reports: Single Occupation: Employed Review of Systems - Review of Systems Review Of Systems: See Below Constitutional: Denies: Chills, Diaphoresis, Fever, Weakness, Other Eyes: Reports: No Symptoms Ears: Reports: No Symptoms Nose: Reports: No Symptoms Mouth/Throat: Reports: No Symptoms Respiratory: Reports: No Symptoms Cardiovascular: Reports: No Symptoms GI/Abdominal: Reports: No Symptoms Genitourinary: Reports: No Symptoms Musculoskeletal: Reports: Other (Increased erythema swelling around the right knee. Right total knee replacement one month ago by Dr. Gallegos.) Neurological: Reports: No Symptoms Psychiatric: Reports: No Symptoms ED EXAM, GENERAL - Physical Exam Exam: See Below Exam Limited By: No Limitations General Appearance: Alert, WD/WN, Anxious, Mild Distress Eye Exam: Bilateral Eye: Normal Inspection Respiratory/Chest: No Respiratory Distress, Lungs Clear, Normal Breath Sounds, Chest Non-Tender Cardiovascular: Normal Peripheral Pulses, Regular Rate, Rhythm, No Edema, No Gallop, No Murmur Peripheral Pulses: 2+: Posterior Tibial (L), Posterior Tibial (R), Dorsalis Pedis (L), Dorsalis Pedis (R) Extremities: Normal Inspection, Other (Does have swelling around the right knee with diffuse erythema with increased warmth to palpation. Erythema starting to spread up the anterior mid thigh towards the groin. The wound itself appears to be intact. Without any obvious drainage or pus. Range of motion is reduced due to swelling and pain. There is minimal edema in the lower extremity.) Neurological: Alert, Oriented ( No further calf tenderness appreciated), CN II- XII Intact, Normal Cognition, Normal Gait Psychiatric: Normal Affect, Normal Mood Skin Exam: Warm, Dry, Intact, Normal Color, Erythema (Surrounding the knee and extending up into the anterior thigh.) Course - Vital Signs Last Recorded V/S: Last Vital Signs Temp 36.3 C 12/31/17 06:22 Pulse 84 12/31/17 06:22 Resp 18 12/31/17 06:22 BP 135/87 12/31/17 06:22 Pulse Ox 96 12/31/17 06:22 - Orders/Labs/Meds Orders: Active Orders 24 hr Category Date Time Status Clindamycin Phosphate [Cleocin] 600 mg Med 12/31/17 07:15 Active Sodium Chloride 0.9% [Normal Saline] 100 ml IV Q6H Ondansetron [Zofran] Med 12/31/17 09:18 Once 4 mg IVPUSH ONETIME ONE Sodium Chloride 0.9% [Normal Saline] 1,000 ml Med 12/31/17 07:15 Active IV ASDIRECTED Medication Orders Clindamycin Phosphate 600 mg/ (Sodium Chloride) 104 mls @ 100 mls/hr IV Q6H HERNAN Last Admin: 12/31/17 07:40 Dose: 100 mls/hr Sodium Chloride (Normal Saline) 1,000 mls @ 500 mls/hr IV ASDIRECTED HERNAN Last Admin: 12/31/17 07:40 Dose: 500 mls/hr Labs: Laboratory Tests 12/31/17 12/31/17 12/31/17 Range/Units 07:08 07:08 07:08 WBC 7.03 (3.98-10.04) K/mm3 RBC 4.10 (3.98-5.22) M/mm3 Hgb 12.8 (11.2-15.7) gm/L Hct 36.9 (34.1-44.9) % MCV 90.0 (79.4-94.8) fl MCH 31.2 (25.6-32.2) pg MCHC 34.7 (32.2-35.5) g/dl RDW Std Deviation 42.3 (36.4-46.3) fL Plt Count 205 (182-369) K/mm3 MPV 10.7 (9.4-12.3) fl Neutrophils % (Manual) 44 (40-60) % Band Neutrophils % 0 (0-10) % Lymphocytes % (Manual) 47 H (20-40) % Atypical Lymphs % 0 % Monocytes % (Manual) 5 (2-10) % Eosinophils % (Manual) 4 (0.7-5.8) % Basophils % (Manual) 0 L (0.1-1.2) Toxic Granulation 1+ slight Platelet Estimate Adequate RBC Morph Comment Normal D-Dimer, Quantitative 1.75 H (0.19-0.59) mg/L Sodium 136 (136-145) mEq/L Potassium 3.9 (3.5-5.1) mEq/L Chloride 103 (98-107) mEq/L Carbon Dioxide 23 (21-32) mEq/L Anion Gap 13.9 (5-15) BUN 9 (7-18) mg/dL Creatinine 0.7 (0.55-1.02) mg/dL Est Cr Clr Drug Dosing 102.85 mL/min Estimated GFR (MDRD) > 60 (>60) mL/min BUN/Creatinine Ratio 12.9 L (14-18) Glucose 115 H (74-106) mg/dL Calcium 8.4 L (8.5-10.1) mg/dL Total Bilirubin 0.2 (0.2-1.0) mg/dL AST 14 L (15-37) U/L ALT 25 (14-59) U/L Alkaline Phosphatase 83 (46-116) U/L C-Reactive Protein 0.4 (<1.0) mg/dL Total Protein 7.3 (6.4-8.2) g/dl Albumin 3.2 L (3.4-5.0) g/dl Globulin 4.1 gm/dL Albumin/Globulin Ratio 0.8 L (1-2) Meds: Medications Generic Name Dose Route Start Last Admin Trade Name Freq PRN Reason Stop Dose Admin Clindamycin Phosphate 600 mg/ 104 mls @ 100 mls/hr 12/31/17 07:15 12/31/17 07 :40 Sodium Chloride IV 100 mls/hr Q6H HERNAN Administration Sodium Chloride 1,000 mls @ 500 mls/hr 12/31/17 07:15 12/31/17 07:40 Normal Saline IV 500 mls/hr ASDIRECTED HERNAN Administration Discontinued Medications Generic Name Dose Route Start Last Admin Trade Name Freq PRN Reason Stop Dose Admin Hydromorphone HCl 1 mg 12/31/17 09:18 Dilaudid IVPUSH 12/31/17 09:19 ONETIME ONE Oxycodone/Acetaminophen 2 tab 12/31/17 08:34 12/31/17 08:38 Percocet 325-5 Mg PO 12/31/17 08:35 2 tab ONETIME ONE Administration - Radiology Interpretation Free Text/Narrative:: 42-year-old female presents to the ED for evaluation of increased erythema swelling around her right anterior knee. Patient had total knee replacement done by Dr. Patricio about one month ago. Surgery is been complicated by the development of a DVT in the calf and she is on Aprxbar16 mg once daily. On examination she has evidence of developing cellulitis around the total knee wound. The wound itself appears to be healing satisfactorily with no obvious purulent drainage or abnormal swelling. Erythema spreading up the anterior thigh to about mid thigh at this time. No inguinal adenopathy appreciated on that side. She has no systemic signs of illness such as fever chills nausea vomiting. Plan clindamycin 600 mg IV. She's allergic to Levaquin and penicillins. Routine labs including CRP to be done. - Re-Assessments/Exams Free Text/Narrative Re-Assessment/Exam: 12/31/17 08:45: Having increased pain at the wound site. Will give Percocet 12/31/17 09:06 White count was 7.03 with 44% neutrophils and 47% lymphocytes. Hemoglobin is 12.8 with hematocrit of 36.9. Plan is normal at 205,000. D-dimer still elevated at 1.75. Sodium is 136 potassium 3.9. Toward 13 bicarbonate 23. And a gap is 13.9 with a BUN of 9. Creatinine is 0.7. GFR is greater than 60. Glucose is 1:15 calcium is 8.4. AST is 14 albumin is 3.2. C-reactive protein is 0.4. 12/31/17 09:19 she is having increased pain in the left knee in spite of the Percocet which likely has had little time to work. I will give her Dilaudid 1 mg IV and she is near tears because of sharp stabbing pain reportedly in her left leg particularly in the calf. She will be discharged on doxycycline 100 mg twice daily for the next 10 days to make sure we have MRSA coverage. She is to follow-up in clinic later today with Donna Castillo that she can witness the cellulitis and then review her in 48 hours time. I will discharge her Percocet 5 /3/25 milligram tabs one or 2 every 4-6 hours for pain relief as needed 20 tabs. Departure - Departure Time of Disposition: 09:20 Disposition: Home, Self-Care 01 Condition: Fair Clinical Impression: Cellulitis of right knee - Discharge Information Prescriptions: Acetaminophen/oxyCODONE [Percocet 325-5 MG] 1 - 2 each PO Q4H PRN #20 tab PRN Reason: pain releif. Doxycycline [Vibramycin] 100 mg PO BID #20 cap oxyCODONE HCl/Acetaminophen [Percocet 5-325 mg Tablet] 1 - 2 each PO Q4H PRN # 20 tablet PRN Reason: pain relief. Referrals: Vandana Mckeon NP [Primary Care Provider] - Forms: ED Department Discharge - My Orders Last 24 Hours: My Active Orders 12/31/17 07:15 Clindamycin Phosphate [Cleocin] 600 mg Sodium Chloride 0.9% [Normal Saline] 100 ml IV Q6H Sodium Chloride 0.9% [Normal Saline] 1,000 ml IV ASDIRECTED 12/31/17 09:18 Ondansetron [Zofran] 4 mg IVPUSH ONETIME ONE - Assessment/Plan Last 24 Hours: My Active Orders 12/31/17 07:15 Clindamycin Phosphate [Cleocin] 600 mg Sodium Chloride 0.9% [Normal Saline] 100 ml IV Q6H Sodium Chloride 0.9% [Normal Saline] 1,000 ml IV ASDIRECTED 12/31/17 09:18 Ondansetron [Zofran] 4 mg IVPUSH ONETIME ONE
[2017-12-31] MEDS: Sodium Chloride 0.9% 1,000 ML IV SCH (07:40)
[2017-12-31] MEDS: Clindamycin Phosphate 600 MG in Sodium Chloride 0.9% 100 ML IV SCH (07:40)
[2017-12-31] MEDS: Acetaminophen/oxyCODONE 325-5 MG Tab PO ONE (08:38)
[2017-12-31] MEDS: Ondansetron 4 MG/2 ML SDV IVPUSH ONE (09:28)
[2017-12-31] MEDS: HYDROmorphone 0.5 MG/0.5 ML SYRINGE IVPUSH ONE (09:29)
== END 2017-12-31 09:42 | disposition home or self-care (01) ==
LOC: JD.ED 06:07
DX: L03.115 Cellulitis of right lower limb (principal); Z88.1 Allergy status to other antibiotic agents; Z88.0 Allergy status to penicillin; Z88.8 Allergy status to other drugs, medicaments and biological substances; Z79.899 Other long term (current) drug therapy; Z87.891 Personal history of nicotine dependence
CPT/HCPCS: 36415; 80053; 85025; 85379; 86140; 96365; 96375; 99284; A9270; J1170; J2405; J7030; J7040

== ENCOUNTER 2018-01-20 06:49 | Day surgery (SDC) | payer OTHER ==
[~2018-01-20 06:49] MED LIST changes: -Bisacodyl 5 MG Tab PO PRN; +Ketamine 500 mg/10 ML MDV ONE; +Lactated Ringers 1,000 ML IV SCH; +Lidocaine 1% 4 ML ONE; +Lidocaine 1%/Sod Bicarbonate in NS 8.4% 1 ML Syringe IDERM PRN; -Magnesium Hydroxide 400 MG/5 ML Susp 30 ML Cup PO PRN; +Midazolam 1 MG/ML 2 ML SDV ONE; -Naloxone 0.4 MG/ML SDV IVPUSH PRN; -Ondansetron 4 MG/2 ML SDV IVPUSH PRN; +Ondansetron 4 MG/2 ML SDV ONE; +Propofol 200 MG/20 ML SDV ONE; -Sennosides 8.6 MG Tab PO PRN; +Sodium Chloride 0.9% 10 ML Syringe FLUSH PRN; -diphenhydrAMINE 50 MG/ML SDV IVPUSH PRN; +fentaNYL 100 MCG/2 ML SDV ONE
--- NOTE | 2018-01-20 07:12 | PCM.PREANE ---
Preanesthetic Assessment - Anesthesia/Transfusion/Family Hx Anesthesia History: Prior Anesthesia Without Reaction Type of Anesthesia Reaction: Other (see below) (nausea sometimes) Other Type of Anesthesia Reaction Comment: nausea/emesis Family History of Anesthesia Reaction: No Transfusion History: No Prior Transfusion(s) Intubation History: Unknown - Review of Systems General: No Symptoms Pulmonary: No Symptoms Cardiovascular: No Symptoms Gastrointestinal: No Symptoms Neurological: No Symptoms Other: Reports: Easy Bruising, Depression, Anxiety - Physical Assessment NPO Status Date: 01/19/18 (sip with pills this am) NPO Status Time: 22:00 Pulse: 78 O2 Sat by Pulse Oximetry: 96 Respiratory Rate: 18 Blood Pressure: 124/81 Temperature: 97.9 F Height: 5 ft 7 in Weight: 90.718 kg ASA Class: 2 Mental Status: Alert & Oriented x3 Airway Class: Mallampati = 1 Dentition: Reports: Normal Dentition Thyro-Mental Finger Breadths: 3 Mouth Opening Finger Breadths: 3 ROM/Head Extension: Full Lungs: Clear to Auscultation, Normal Respiratory Effort Cardiovascular: Regular Rate, Regular Rhythm - Allergies Allergies/Adverse Reactions: Allergies Allergy/AdvReac Type Severity Reaction Status Date / Time tree nut Allergy Severe Anaphylactic Verified 01/19/18 12:45 Shock levofloxacin [From Levaquin] Allergy Rash Verified 01/19/18 12:45 metronidazole [From Flagyl] Allergy Rash Verified 01/19/18 12:45 Penicillins Allergy Hives Verified 01/19/18 12:45 meperidine HCl [From Demerol] AdvReac Nausea Verified 01/19/18 12:45 - Blood Blood Available: No - Acknowledgements Anesthesia Type Planned: MAC Pt an Appropriate Candidate for the Planned Anesthesia: Yes Alternatives and Risks of Anesthesia Discussed w Pt/Guardian: Yes Pt/Guardian Understands and Agrees with Anesthesia Plan: Yes PreAnesthesia Questionnaire HEENT History: Reports: Allergic Rhinitis, Other (See Below) Other HEENT History: reports snoring Cardiovascular History: Reports: None, Blood Clots/VTE/DVT Respiratory History: Reports: Asthma Gastrointestinal History: Reports: Cholelithiasis Genitourinary History: Reports: None 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: , Other (See Below) Other OB/BYN History: breast reduction Musculoskeletal History: Reports: Arthritis, Other (See Below) Other Musculoskeletal History: current visit for right total knee Neurological History: Reports: Concussion Psychiatric History: Reports: Anxiety, Depression, Panic Attack Other Psychiatric History: Effexor 37.5 mg Endocrine/Metabolic History: Reports: Obesity/BMI 30+ Hematologic History: Reports: Iron Deficiency Other Hematologic History: iron deficiency after Immunologic History: Reports: None Oncologic (Cancer) History: Reports: None Dermatologic History: Reports: Other (See Below) Other Dermatologic History: reports that she had a ingrown hair that got infected and she had to have surgery to remove and clean it out. She states that she was in the hospital for 6 days as she had a staph and strep infection - Infectious Disease History Infectious Disease History: Reports: C-Difficile, Chicken Pox - Past Surgical History Head Surgeries/Procedures: Reports: None HEENT Surgical History: Reports: Adenoidectomy, Tonsillectomy Cardiovascular Surgical History: Reports: None Respiratory Surgical History: Reports: None GI Surgical History: Reports: Appendectomy, Cholecystectomy Female Surgical History: Reports: Breast Reduction, Section, D&C, Hysterectomy Male Surgical History: Reports: None Endocrine Surgical History: Reports: None Neurological Surgical History: Reports: None Musculoskeletal Surgical History: Reports: Joint Replacement, Knee Replacement Oncologic Surgical History: Reports: None Dermatological Surgical History: Reports: Skin Biopsy - SUBSTANCE USE Smoking Status *Q: Current Every Day Smoker (jacquelyn) Tobacco Use Within Last Twelve Months: Cigarettes Second Hand Smoke Exposure: Yes Days Per Week of Alcohol Use: 0 Number of Drinks Per Day: 0 Total Drinks Per Week: 0 Recreational Drug Use History: No - HOME MEDS Home Medications: Home Meds Zolpidem [Ambien] 10 mg PO BEDTIME 09/03/14 [History] Venlafaxine [Effexor XR] 75 mg PO DAILY 11/13/15 [History] LORazepam 0.5 mg PO QID PRN 12/07/17 [History] Cyclobenzaprine [Flexeril] 10 mg PO TID PRN tablet 12/09/17 [Rx] Famotidine [Pepcid] 20 mg PO Q12H tablet 12/09/17 [Rx] Doxycycline [Vibramycin] 100 mg PO BID #20 cap 12/31/17 [Rx] Hydrocodone/Acetaminophen [Hydrocodon-Acetaminophen 5-325] 1 - 2 tab PO Q4H PRN 12/31/17 [History] Rivaroxaban [Xarelto] 15 mg PO BID 12/31/17 [History] Celecoxib 200 mg PO DAILY PRN 01/19/18 [History] Tapentadol HCl [Nucynta] 50 mg PO ASDIRECTED PRN 01/19/18 [History] oxyCODONE HCl/Acetaminophen [Percocet 5-325 mg Tablet] 1 - 2 each PO Q6H PRN [History] - CURRENT (IN HOUSE) MEDS Current Meds: Current Medications Lactated Ringer's (Ringers, Lactated) 1,000 mls @ 125 mls/hr IV ASDIRECTED HERNAN Lidocaine/Sodium Bicarbonate (Buffered Lidocaine 1% In Ns 8.4%) 0.25 ml IDERM ONETIME PRN PRN Reason: Prior to IV Start Sodium Chloride (Saline Flush) 10 ml FLUSH ASDIRECTED PRN PRN Reason: Keep Vein Open Discontinued Medications Fentanyl (Sublimaze) Confirm Administered Dose 100 mcg .ROUTE .STK-MED ONE Stop: 01/20/18 06:42 Lidocaine HCl (Xylocaine-Mpf 1%) Confirm Administered Dose 4 mls @ as directed .ROUTE .STK-MED ONE Stop: 01/20/18 06:42 Ketamine HCl (Ketalar) Confirm Administered Dose 500 mg .ROUTE .STK-MED ONE Stop: 01/20/18 06:43 Midazolam HCl (Versed 1 Mg/Ml) Confirm Administered Dose 2 mg .ROUTE .STK-MED ONE Stop: 01/20/18 06:42 Ondansetron HCl (Zofran) Confirm Administered Dose 4 mg .ROUTE .STK-MED ONE Stop: 01/20/18 06:50 Propofol (Diprivan 20 Ml) Confirm Administered Dose 200 mg .ROUTE .STK-MED ONE Stop: 01/20/18 06:42
[2018-01-20] MEDS ORDERED: HYDROmorphone 1 MG/ML Syringe ONE (07:54)
[2018-01-20] MEDS ORDERED: HYDROmorphone 0.5 MG/0.5 ML Syringe IVPUSH PRN (07:55)
[2018-01-20] MEDS ORDERED: LORazepam 2 MG/ML SDV IVPUSH ONE (07:55)
[2018-01-20] MEDS ORDERED: Ropivacaine 0.5% 5 MG/ML 30 ML SDV ONE (07:55)
[2018-01-20] MEDS ORDERED: fentaNYL 100 MCG/2 ML SDV IVPUSH PRN (07:55)
[2018-01-20] MEDS ORDERED: Ondansetron 4 MG/2 ML SDV IVPUSH PRN (07:55)
[2018-01-20] MEDS ORDERED: EPINEPHrine 1 MG/ML SDV ONE (07:55)
--- NOTE | 2018-01-20 07:57 | PCM.POSTAN ---
POST ANESTHESIA ASSESSMENT - MENTAL STATUS Mental Status: Alert, Oriented - VITAL SIGNS Pulse Rate: 75 SaO2: 99 Resp Rate: 24 Blood Pressure: 126/95 Temperature: 98.3 F - RESPIRATORY Respiratory Status: Respiratory Rate WNL, Airway Patent, O2 Saturation Stable, Supplemental Oxygen - CARDIOVASCULAR CV Status: Pulse Rate WNL, Blood Pressure Stable - GASTROINTESTINAL GI Status: No Symptoms - PAIN Pain Score: 10 (medicated) - POST OP HYDRATION Hydration Status: Adequate & Stable
[2018-01-20] MEDS ORDERED: Lidocaine 1% 4 ML ONE (08:16)
--- NOTE | 2018-01-20 09:06 | PCM.SN ---
- Free Text/Narrative Note: Right selective femoral nerve block at the adductor canal for post-procedure pain control under US guidance requested by Dr. Gallegos. Time Out: 809 End: 821 Patient crying in pain Discussed block with her. Wishes to proceed. Appropriate monitors applied. Time out performed. Right mid-shaft femur identified with ultrasound, scanning medially of femur, the femoral artery in the adductor canal visualized, and the femoral nerve located laterally to the artery. The skin was prepped lateral to the ultrasound probe with chlorahexadine. The 21ga 4 insulated block needle was inserted under direct ultrasound guidance into the adductor canal. 25mL of 0.5% ropivacaine with 1:200,000 epinephrine was injected circumferentially around the nerve with intermittent negative aspiration noted. Patient tolerated the procedure well. See pictures on progress note and vital signs on nurses notes. Block completed in PACU with assist from ABBEY Jennings CRNA
--- NOTE | 2018-01-20 09:56 | CR ---
Right knee: Two fluoroscopic spot views were obtained of the right knee utilizing C-arm device. Knee prosthesis is noted. Components are aligned. Underlying bony structures are intact. Fluoroscopy time given as 2.8 seconds. Impression: 1. Findings as noted above. Diagnostic code #2
--- NOTE | 2018-01-20 10:16 | PCM48HPAN ---
Post Anesthesia Note - EVALUATION WITHIN 48HRS OF ANESTHETIC Vital Signs in Normal Range: Yes Patient Participated in Evaluation: Yes Respiratory Function Stable: Yes Airway Patent: Yes Cardiovascular Function Stable: Yes Hydration Status Stable: Yes Pain Control Satisfactory: Yes (rests) Nausea and Vomiting Control Satisfactory: Yes Mental Status Recovered: Yes Pulse Rate: 75 Resp Rate: 11 Temperature: 98.3 F Blood Pressure: 126/95
[2018-01-20] MEDS ORDERED: Acetaminophen/oxyCODONE 325-5 MG Tab PO ONE (10:45)
[2018-01-20 12:54] VITALS: BP 118/82
--- NOTE | 2018-01-28 07:06 | PCM.OPNOTE ---
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
--- NOTE | 2018-01-28 07:32 | OR ---
DATE OF OPERATION: 01/20/2018 SURGEON: Justin Gallegos MD OPERATION PERFORMED: Right total knee arthroplasty, manipulation under anesthesia. PREOPERATIVE DIAGNOSIS: Arthrofibrosis, right total knee arthroplasty. POSTOPERATIVE DIAGNOSIS: Arthrofibrosis, right total knee arthroplasty. ANESTHESIA: MAC. ANESTHESIA PROVIDER: Lazaro Bowers CRNA DUMPER MOLD CLEANER: None. ESTIMATED BLOOD LOSS: Not applicable. COMPLICATIONS: None. CONDITION: Stable. DESCRIPTION OF PROCEDURE: The patient was identified in the preop holding area. Proper site was marked and identified by the surgeon. The patient was taken back to the operating theater where after adequate anesthesia, pre-manipulation range of motion was identified. Time-out was performed before this happened. Range of motion was roughly 5 to 60 before manipulation. After this, with very gentle pressure, I was able to get her to 2 to 123 degrees of motion. It was stable throughout range of motion. C-arm fluoroscopy was utilized showing the implants were stable with no signs of liftoff or loosening. The patient at this time, was sent to the PACU in stable condition. She tolerated the procedure well. MMODAL /[id number]
== END 2018-01-20 12:30 | disposition home or self-care (01) ==
LOC: JD.SDS 06:49
PROVIDERS: ATTEND Orthopaedic Surgery
DX: M24.661 Ankylosis, right knee (principal); J45.909 Unspecified asthma, uncomplicated; F41.9 Anxiety disorder, unspecified; F32.9 Major depressive disorder, single episode, unspecified; E66.9 Obesity, unspecified; F17.210 Nicotine dependence, cigarettes, uncomplicated; Z96.653 Presence of artificial knee joint, bilateral; Z90.49 Acquired absence of other specified parts of digestive tract; Z98.890 Other specified postprocedural states; Z90.89 Acquired absence of other organs; Z88.0 Allergy status to penicillin; Z88.5 Allergy status to narcotic agent; Z91.018 Allergy to other foods; Z88.8 Allergy status to other drugs, medicaments and biological substances; Z79.899 Other long term (current) drug therapy; Z86.718 Personal history of other venous thrombosis and embolism; Z68.32 Body mass index [BMI] 32.0-32.9, adult; Z79.01 Long term (current) use of anticoagulants
CPT/HCPCS: 27570; 64447; 76000; A9270; J0171; J1170; J2060; J2250; J2405; J2795; J3010; J7120; 01400; 64450; J2704

== ENCOUNTER 2020-11-27 00:22 | Emergency (ER) | payer SELFPAY ==
[2020-11-27 00:40] VITALS: BP 142/102; PULSE 102
[2020-11-27] MEDS ORDERED: Albuterol/Ipratropium 3.0-0.5 MG/3 ML Neb Soln NEB ONE (01:22)
--- NOTE | 2020-11-27 01:26 | EDM.PDOC ---
ED HPI GENERAL MEDICAL PROBLEM - General Chief Complaint: Respiratory Problem Stated Complaint: CHEST CONGESTION,PAINFUL BREATHING Time Seen by Provider: 11/27/20 00:47 Source of Information: Reports: Patient History Limitations: Reports: No Limitations - History of Present Illness INITIAL COMMENTS - FREE TEXT/NARRATIVE: Ms. Amador is a very pleasant 45-year-old woman who now presents to the ED with a 3-week history of respiratory symptoms. She states that about 3 weeks ago she developed nasal congestion, followed by chest congestion. She states that she has a cough occasionally productive of yellowish sputum, and that she feels dyspneic. She states that she feels like there are rocks rattling around in her chest. She states that she has had chills, but no actual fever. She was seen at the walk-in clinic on , 11/09/2020, where a COVID test was negative. She states that no other tests were done, but that she was diagnosed with a URI. She states that no prescriptions were written. She then followed up with her PCP on 11/15/2019. She states that no tests were done at that time, but that she was prescribed a course of prednisone, with a subsequent refill, such that she has been on prednisone continuously from 11/15/2020 through yesterday, 11/26/2020. She also states that she was prescribed a Z-Otoniel, but that she did not actually start it until 11/22/2020, finishing it yesterday, 11/26/2020. She states that she has also been taking Mucinex the entire 3 weeks, and an occasional albuterol neb treatment, most recently just prior to coming to the ED. She states that these medicines have not significantly improved her symptoms. She denies having similar symptoms prior to 3 weeks ago. Of interest, the patient states that she was found to have a right lower extremity DVT in 2018, following a right total knee arthroplasty. She was again found to have a right lower extremity DVT in 2019, but does not recall if it was ever established that the initial DVT resolved prior to the second one being found. She states that she subsequently tested positive for factor V Leiden deficiency. Here in the ED, the patient's initial BP is found to be slightly elevated at 142/102 with slight tachycardia 102 bpm. She is afebrile, saturating 94% on room air. Prior to 3 weeks ago, the patient denies having a recent fever, chills, sore throat, ear pain, nasal or sinus congestion, cough, dyspnea, chest pain, palpitations, nausea, vomiting, constipation, diarrhea, abdominal pain, urinary symptoms, recent weight gain or weight loss, recent bloody bowel movements or black bowel movements, recent joint aches, headaches, or rashes. The patient's PCP is Vandana Mckeon NP. Her Orthopedic Surgeon is Dr. Justin Gallegos. She did not receive an influenza vaccine this season, and declined an offer to receive one here in the ED tonight. Chest Pain Score (Numeric/FACES): 8 - Related Data Allergies Allergy/AdvReac Type Severity Reaction Status Date / Time tree nut Allergy Severe Anaphylactic Verified 01/20/18 07:18 Shock levofloxacin [From Levaquin] Allergy Rash Verified 01/20/18 07:18 metronidazole [From Flagyl] Allergy Rash Verified 01/20/18 07:18 Penicillins Allergy Hives Verified 01/20/18 07:18 meperidine HCl [From Demerol] AdvReac Nausea Verified 01/20/18 07:18 Home Meds: Home Meds Zolpidem [Ambien] 10 mg PO BEDTIME 09/03/14 [History] Venlafaxine [Effexor XR] 150 mg PO DAILY 11/13/15 [History] Cyclobenzaprine [Flexeril] 10 mg PO TID PRN tablet 12/09/17 [Rx] oxyCODONE HCl/Acetaminophen [Percocet 5-325 mg Tablet] 1 - 2 each PO Q6H PRN 01/19/18 [History] ALPRAZolam [Xanax] 0.5 mg PO Q6H PRN 11/27/20 [History] Albuterol [Proventil HFA] 1 puff INH Q1H PRN 11/27/20 [History] Past Medical History HEENT History: Reports: Allergic Rhinitis Cardiovascular History: Reports: Blood Clots/VTE/DVT (RLE DVT 2017 and 2019) Respiratory History: Reports: Asthma (suspected, not tested) Musculoskeletal History: Reports: Osteoarthritis Psychiatric History: Reports: Anxiety, Depression, Panic Attack Endocrine/Metabolic History: Reports: Obesity/BMI 30+ Hematologic History: Reports: Bleeding Disorder (Factor V Leiden mutation) - Infectious Disease History Infectious Disease History: Reports: C-Difficile, Chicken Pox - Past Surgical History HEENT Surgical History: Reports: Adenoidectomy, Tonsillectomy GI Surgical History: Reports: Appendectomy, Cholecystectomy (before 2010) Female Surgical History: Reports: Breast Reduction, Section (x 1), D&C (x 2), Hysterectomy (partial) Musculoskeletal Surgical History: Reports: Knee Replacement (right, 2018) Social & Family History - Tobacco Use Tobacco Use Status *Q: Current Every Day Tobacco User Years of Tobacco use: 9 Packs/Tins Daily: 0.5 - Caffeine Use Caffeine Use: Reports: Coffee, Tea - Alcohol Use Alcohol Use History: Yes Alcohol Use Frequency: Rarely - Recreational Drug Use Recreational Drug Use: Yes Drug Use in Last 12 Months: Yes Recreational Drug Type: Reports: Marijuana/Hashish (smokes every other day) - Living Situation & Occupation Living situation: Reports: Single, with Significant Other (Fianc) 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 ED EXAM, GENERAL - Physical Exam Exam: See Below Exam Limited By: No Limitations General Appearance: Alert, WD/WN, No Apparent Distress (deep breaths induced paroxysm of cough) Eye Exam: Bilateral Eye: EOMI, Normal Inspection Ears: Normal External Exam, Hearing Grossly Normal Nose: Normal Inspection Throat/Mouth: Normal Inspection, Normal Lips, Normal Voice, No Airway Compromise Head: Atraumatic, Normocephalic Neck: Normal Inspection, Full Range of Motion Respiratory/Chest: No Respiratory Distress, No Accessory Muscle Use, Wheezing (very slight, end-expiratory, while coughing). No: Decreased Breath Sounds, Crackles, Rhonchi, Stridor, Prolonged Expiration Cardiovascular: Normal Peripheral Pulses, Regular Rate, Rhythm, No Edema, No Gallop, No JVD, No Murmur, No Rub Peripheral Pulses: 3+: Radial (L), Radial (R) GI/Abdominal: Normal Bowel Sounds, Soft, Non-Tender, No Organomegaly, No Distention, No Abnormal Bruit, No Mass Back Exam: Normal Inspection, Full Range of Motion, NT Extremities: Normal Inspection, Normal Range of Motion, No Pedal Edema, Normal Capillary Refill Neurological: Alert, Oriented, Normal Cognition, No Motor/Sensory Deficits Psychiatric: Normal Affect Skin Exam: Warm, Dry, Intact, Normal Color, No Rash Course - Vital Signs Last Recorded V/S: Last Vital Signs Temp 35.7 C L 11/27/20 00:34 Pulse 102 H 11/27/20 00:34 Resp 18 11/27/20 00:34 BP 142/102 H 11/27/20 00:34 Pulse Ox 93 L 11/27/20 01:46 - Orders/Labs/Meds Orders: Active Orders 24 hr Category Date Time Status Chest 2V [CR] Stat Exams 11/27/20 01:20 Taken Labs: Laboratory Tests 11/27/20 11/27/20 11/27/20 Range/Units 01:32 01:42 01:42 WBC 19.20 H (3.98-10.04) K/mm3 RBC 4.22 (3.98-5.22) M/mm3 Hgb 13.3 (11.2-15.7) gm/dl Hct 39.5 (34.1-44.9) % MCV 93.6 D (79.4-94.8) fl MCH 31.5 (25.6-32.2) pg MCHC 33.7 (32.2-35.5) g/dl RDW Std Deviation 44.8 (36.4-46.3) fL Plt Count 204 (182-369) K/mm3 MPV 10.2 (9.4-12.3) fl Neutrophils % (Manual) 72 H (40-60) % Band Neutrophils % 0 (0-10) % Lymphocytes % (Manual) 24 (20-40) % Atypical Lymphs % 0 % Monocytes % (Manual) 4 (2-10) % Eosinophils % (Manual) 0 L (0.7-5.8) % Basophils % (Manual) 0 L (0.1-1.2) Platelet Estimate Adequate RBC Morph Comment Normal D-Dimer, Quantitative 0.78 H (0.19-0.50) mg/L Sodium (136-145) mEq/L Potassium (3.5-5.1) mEq/L Chloride (98-107) mEq/L Carbon Dioxide (21-32) mEq/L Anion Gap (5-15) BUN (7-18) mg/dL Creatinine (0.55-1.02) mg/dL Est Cr Clr Drug Dosing Estimated GFR (MDRD) (>60) mL/min BUN/Creatinine Ratio (14-18) Glucose (74-106) mg/dL Calcium (8.5-10.1) mg/dL Total Bilirubin (0.2-1.0) mg/dL AST (15-37) U/L ALT (14-59) U/L Alkaline Phosphatase (46-116) U/L C-Reactive Protein (<1.0) mg/dL Total Protein (6.4-8.2) g/dl Albumin (3.4-5.0) g/dl Globulin gm/dL Albumin/Globulin Ratio (1-2) Influenza Type A RNA Negative (NEGATIVE) Influenza Type B RNA Negative (NEGATIVE) SARS-CoV-2 RNA (TARAS) Negative (NEGATIVE) 11/27/20 Range/Units 01:42 WBC (3.98-10.04) K/mm3 RBC (3.98-5.22) M/mm3 Hgb (11.2-15.7) gm/dl Hct (34.1-44.9) % MCV (79.4-94.8) fl MCH (25.6-32.2) pg MCHC (32.2-35.5) g/dl RDW Std Deviation (36.4-46.3) fL Plt Count (182-369) K/mm3 MPV (9.4-12.3) fl Neutrophils % (Manual) (40-60) % Band Neutrophils % (0-10) % Lymphocytes % (Manual) (20-40) % Atypical Lymphs % % Monocytes % (Manual) (2-10) % Eosinophils % (Manual) (0.7-5.8) % Basophils % (Manual) (0.1-1.2) Platelet Estimate RBC Morph Comment D-Dimer, Quantitative (0.19-0.50) mg/L Sodium 139 (136-145) mEq/L Potassium 4.0 (3.5-5.1) mEq/L Chloride 102 (98-107) mEq/L Carbon Dioxide 29 (21-32) mEq/L Anion Gap 12.0 (5-15) BUN 14 (7-18) mg/dL Creatinine 0.8 (0.55-1.02) mg/dL Est Cr Clr Drug Dosing TNP Estimated GFR (MDRD) > 60 (>60) mL/min BUN/Creatinine Ratio 17.5 (14-18) Glucose 96 (74-106) mg/dL Calcium 8.5 (8.5-10.1) mg/dL Total Bilirubin 0.2 (0.2-1.0) mg/dL AST 11 L (15-37) U/L ALT 22 (14-59) U/L Alkaline Phosphatase 53 (46-116) U/L C-Reactive Protein <0.2 (<1.0) mg/dL Total Protein 6.6 (6.4-8.2) g/dl Albumin 3.1 L (3.4-5.0) g/dl Globulin 3.5 gm/dL Albumin/Globulin Ratio 0.9 L (1-2) Influenza Type A RNA (NEGATIVE) Influenza Type B RNA (NEGATIVE) SARS-CoV-2 RNA (TARAS) (NEGATIVE) Meds: Medications Discontinued Medications Generic Name Dose Route Start Last Admin Trade Name Freq PRN Reason Stop Dose Admin Albuterol/Ipratropium 3 ml 11/27/20 01:22 11/27/20 01:44 Duoneb 3.0-0.5 Mg/3 Ml NEB 11/27/20 01:23 3 ml ONETIME ONE Administration - Re-Assessments/Exams Free Text/Narrative Re-Assessment/Exam: 11/27/20 01:22 As above, the patient developed nasal congestion which turned into chest congestion about 3 weeks ago. She was treated with an approximately 11-day course of prednisone from 11/15/2020 through 11/26/2020, as well as a Z-Otoniel from 11/22/2020 through 11/26/2020, without any significant improvement in her symptoms. No recent fever, although she has had a cough occasionally productive of yellowish sputum, which I witnessed while I was examining her. She has very faint end expiratory wheezing which could have been due to the severity of her cough. Her exam is otherwise unremarkable. I have ordered a work-up that includes several blood tests, a swab for COVID-19 and influenza, and a chest x- ray. In the meantime, the patient will be treated with a DuoNeb. 11/27/20 02:18 The patient's CBC is remarkable for WBC count elevated at 19.20, but with 0% bandemia, and the remainder of her CBC being unremarkable. Her CMP is unremarkable. Her CRP is undetectably low. Her D-dimer is slightly elevated at 0.78. Her swab for COVID-19/influenza has returned negative for both. The patient has not yet gone for a chest x-ray. 11/27/20 03:00 Two-view chest radiograph reviewed. The cardiac silhouette is within normal limits. No pulmonary vascular congestion. No pleural effusions. No focal infiltrate. No pneumothorax. Thoracolumbar scoliosis incidentally noted. Formal read per the Radiologist pending. 11/27/20 03:05 Test results discussed with the patient. She confirmed that her wheezing/rhonchi are worse when she is supine. The patient has acute viral bronchitis, which explains not only her symptoms, but why she has not improved despite treatment with steroids, antibiotics, albuterol, and Mucinex. I explained that, unfortunately, there are no medicines that have been shown to benefit the symptoms of bronchitis, that it will simply have to run its course. On the bright side, acute bronchitis typically lasts for about 3 weeks, therefore the patient should expect resolution of her symptoms soon. The patient requested a note to be off work today. Departure - Departure Time of Disposition: 03:06 Disposition: Home, Self-Care 01 Condition: Good Clinical Impression: Acute viral bronchitis - Discharge Information *PRESCRIPTION DRUG MONITORING PROGRAM REVIEWED*: Not Applicable *COPY OF PRESCRIPTION DRUG MONITORING REPORT IN PATIENT MARKELL: Not Applicable Instructions: Acute Bronchitis, Adult, [id number] Referrals: Vandana Mckeon NP [Primary Care Provider] - Justin Gallegos MD [Physician] - Forms: ED Department Discharge, ED Return to Work/School Form Additional Instructions: You were seen in the emergency room for 3 weeks of readily chest congestion, a cough, shortness of breath, and chills without fever. Work-up in the ER included several blood tests, a swab for both COVID-19 and influenza, and a chest x-ray. Your entire work-up was unremarkable. You do not have pneumonia. You do not have a blood clot in your lungs. You do not have influenza. You do not have COVID-19. You are not suffering from an asthma exacerbation. Based on your history, physical exam, and ER tests, you are suffering from acute viral bronchitis. As discussed, there are no treatments to improve the symptoms of acute viral bronchitis - the illness will have to run its course. We do not recommend that you continue to take albuterol, Mucinex, or any other [id number] medicines, as they have been shown to be of no benefit, but do have side effects. Fortunately, most cases of acute viral bronchitis last for about 3 weeks, meaning that your symptoms should resolve soon. If any other problems, please do not hesitate to return to the ER. A note for work has been provided to you. Sepsis Event Note (ED) - Evaluation Sepsis Screening Result: Possible Sepsis Risk - Focused Exam Vital Signs: Vital Signs Temp Pulse Resp BP Pulse Ox Pulse Ox 11/27/20 01:46 93 L 11/27/20 00:34 35.7 C L 102 H 18 142/102 H 94 L - My Orders Last 24 Hours: My Active Orders 11/27/20 01:20 Chest 2V [CR] Stat - Assessment/Plan Last 24 Hours: My Active Orders 11/27/20 01:20 Chest 2V [CR] Stat
[2020-11-27 02:14] LABS: CORONAVIRUS COVID-19 NAA NEGATIVE (NEGATIVE)
--- NOTE | 2020-11-27 08:30 | CR ---
Chest: 2 views of the chest were obtained. Comparison: Prior chest x-ray of 11/16/13. Heart size and mediastinum are normal. Lungs are clear with no acute parenchymal change being seen. Bony structures appear within normal limits. Previous cholecystectomy is noted. Impression: 1. Nothing acute is seen on 2 view chest x-ray. Diagnostic code #2
== END 2020-11-27 03:22 | disposition home or self-care (01) ==
LOC: JD.ED 00:22
DX: J20.8 Acute bronchitis due to other specified organisms (principal); B97.89 Other viral agents as the cause of diseases classified elsewhere; E66.9 Obesity, unspecified; Z20.822 Contact with and (suspected) exposure to COVID-19; Z88.0 Allergy status to penicillin; Z88.5 Allergy status to narcotic agent; Z88.1 Allergy status to other antibiotic agents; Z91.018 Allergy to other foods; Z72.0 Tobacco use
CPT/HCPCS: 0240U; 36415; 71046; 80053; 85007; 85027; 85379; 86140; 94640; 99284; 99283; J7620-GY